=== PATIENT | female | born 1960 | race Caucasian/White ===

== ENCOUNTER → 2016-05-16 | Outpatient (CLI) | payer OTHER ==
[~2016-05-16] MED LIST: ASPEC325 PO; ASPI81TA28 PO; CARI350T28 PO; CITA20TA9 PO; FEXO1TAB58 PO; FLUT0.15 INH; FLUT50SP14 NAE; GADAVIST IV PRN; NARA1TAB14 PO; NUTR1000 PO; PRAV20TA PO; RIZA10TA18 PO; TOPI100T20 PO; TOPI50TA16 PO; TRAM-10 PO
--- NOTE | 2016-05-16 14:00 | DIAGNOSTIC IMAGING REPORT ---
MRI OF THE BRAIN WITHOUT AND WITH IV CONTRAST CLINICAL HISTORY: Headache. Suspected migraine. COMPARISON STUDY: Head CT dated 10/26/2011 TECHNIQUE: MRI of the brain was performed from the vertex to the skull base utilizing various T1 and T2 weighted sequences. Following the IV administration of 6 mL of Gadavist contrast, additional enhanced images were obtained. FINDINGS: Sagittal T1, axial diffusion, proton density and T2 weighted axial, coronal FLAIR, and pre and post axial T1-weighted images were acquired. These were supplemented with post gadolinium coronal T1 weighted images. No intra or extra-axial mass lesions are visualized. Axial diffusion-weighted images reveal no evidence of acute or subacute infarction. There is no evidence of ventricular dilatation. Proton density T2-weighted and FLAIR images reveal no significant intraparenchymal signal abnormalities. There are no abnormal flow voids. There is no evidence of pathologic enhancement. IMPRESSION: Normal MRI of the brain for age Electronically signed by: Paul Patten M.D. 05/16/2016 1:59 PM Dictated Date/Time: 05/16/2016 1:55 PM
== END | disposition home or self-care (01) ==
LOC: C.MRI 13:03
PROVIDERS: ATTEND Psychiatry & Neurology Neurology
DX: G43.909 Migraine, unspecified, not intractable, without status migrainosus (principal)

== ENCOUNTER → 2016-08-23 | Outpatient (CLI) | payer OTHER ==
--- NOTE | 2016-08-24 14:24 | MAMMOGRAPHY REPORT ---
BREAST MRI OF BOTH BREASTS : 08/23/2016 CLINICAL HISTORY: 55 year-old woman with a personal history of left breast cancer diagnosed in 2005, status post breast conservation therapy, presents with new left nipple retraction over the past 6-12 months. Patient reports no nipple discharge, palpable mass or focal pain. COMPARISON: Comparison is made to exams dated: 10/02/2011 ultrasound, 10/02/2011 mammogram - [facility], 12/12/2010 mammogram, 12/23/2009 mammogram - [facility], 01/27/2009 spec imen, and 01/24/2009 localization - [facility]. TECHNIQUE: Using a 1.5 Mary magnet and dedicated breast coil, multisequence axial images were obtain ed through the breasts. After uneventful IV administration of 6.5 mL of Gadavist, dynamic multiphase contrast-enhanced axial images, and sagittal postcontrast were obtained. Temporal subtraction axial images and 3-D MIP images are provided. Everything was then reviewed on a 3-D workstation, [employer]. FINDINGS: There is mild asymmetry in the size of the breasts, right greater than left, likely seconda ry to previous treatment of the left breast. There is mild background enhancement in the breasts. T here is expected architectural distortion and central fat necrosis in the 12:00 to 1:00 middle one th ird of the left breast, at the site of prior lumpectomy. There is mild anterior left breast thickeni ng which could be related to prior treatment. There is retraction of the left nipple compared to the right. However, there is no suspicious mass or suspicious enhancement near the area of prior surger y or elsewhere within the anterior left breast to suggest an underlying cause of the new nipple retra ction. There is no enhancement of the skin or tissue surrounding the retracted left nipple. There i s minimal duct ectasia of the left breast, and to a greater degree duct ectasia within the right j[address]. Overall, no suspicious enhancing mass, suspicious mass enhancement or suspicious kinetics are id entified bilaterally. No suspicious right or left axillary lymphadenopathy. Incidental note is made of trace dependent fluid in the visualized aspect of the lungs. IMPRESSION: ACR BI-RADS CATEGORY 2: BENIGN 1. Expected postsurgical and posttreatment changes within the left breast. No new suspicious enhanc ing mass enhancement of the skin or other suspicious abnormality to explain the new left nipple retra ction. It is unclear if this may be related to prior treatment. Clinical follow-up is recommended, as biopsy of a clinically suspicious abnormality should not be precluded by negative imaging. 2. Overall, no MRI evidence of malignancy in the breasts. Continuation of annual screening schedule is recommended. The patient will receive written notification of the results. Meli Jansen M.D. ay/:08/23/2016 17:48:06 Home Demonstration Agent: call worker, [facility] letter sent: Normal 1/2 BI-RADS Code: ACR BI-RADS Category 2: Benign
== END | disposition home or self-care (01) ==
LOC: C.MRI 12:23
PROVIDERS: ATTEND Surgery
DX: N64.53 Retraction of nipple (principal); Z85.3 Personal history of malignant neoplasm of breast

== ENCOUNTER 2016-09-29 16:03 | Emergency (ER) | payer OTHER ==
[~2016-09-29] VITALS: Ht 162.6 cm; Wt 65.3 kg
[~2016-09-29 16:03] MED LIST changes: -ASPI81TA28 PO; -FLUT0.15 INH; -GADAVIST IV PRN; -NARA1TAB14 PO
[2016-09-29 16:10] VITALS: TEMP 36.4; Ht 162.6 cm; Wt 65.3 kg
[2016-09-29] MEDS ORDERED: MoRPHine SULFATE 10 MG/ML CARP/VIAL IV STA (16:30)
[2016-09-29] MEDS ORDERED: PROMETHAZINE HCL INJ 12.5 MG in SODIUM CHLORIDE 0.9% 50ML 50 ML IV STA (16:30)
[2016-09-29] MEDS ORDERED: KETOROLAC TROMETHAMINE 30 MG/ML VIAL IV STA (16:30)
[2016-09-29] MEDS ORDERED: DEXAMETHASONE SOD INJ 10 MG/ML VIAL IV ONE (16:30)
[2016-09-29] MEDS ORDERED: SODIUM CHLORIDE 0.9% 1000ML 500 ML IV STA (16:30)
[2016-09-29] MEDS ORDERED: FLUT0.15 INH (16:51)
[2016-09-29] MEDS ORDERED: ASPI81TA28 PO (16:51)
[2016-09-29] MEDS ORDERED: NARA1TAB14 PO (16:51)
[2016-09-29 16:54] VITALS: O2SAT 94
--- NOTE | 2016-09-29 17:35 | EMERGENCY ROOM VISIT NOTE ---
ED Visit Note First contact with patient: 16:16 CHIEF COMPLAINT: Migraine headache since this morning HISTORY OF PRESENT ILLNESS: Patient is a 55-year-old white female who presents to the emergency department for evaluation of a migraine that started this morning. Patient states that she didn't feel quite right yesterday evening but did not have a headache. She noted she was fatigued. She woke up at 0 8:30 this morning with a headache and took Excedrin and went back to bed. She woke up again 30 minutes later and took her typical cocktail including Soma, naratriptan and tramadol. She repeated this again at 1400, without relief. She reports her typical throbbing right occipital headache radiating to the right periorbital area. She has associated nausea, photo and phonophobia without vomiting. She follows with neurology, had an MRI in April of this year which was negative and has an appointment at the end of the month. She denies any difficulty with balance, speech or coordination. She denies any recent cold or upper respiratory symptoms, fever, chills, neck pain or stiffness. She denies weakness or numbness of the extremities. No trauma to the head and no neck pain. Patient reports that this is very typical of her usual migraine phenomenon. She rates her headache any/10. REVIEW OF SYSTEMS: Review of systems as per HPI. All other systems reviewed were negative. 10 systems reviewed. PMH: Electronic medical records are reviewed and summarized as above/below. See Problem List. SOCIAL HISTORY: Patient lives at home with her significant other. Employed. Nonsmoker.. PHYSICAL EXAM: Vital Signs: Reviewed Nurse's notes. General Appearance: Pleasant, well appearing, well-groomed 55-year-old white female who was awake and alert and laying in a darkened room in no acute distress. Vital signs are stable. Eyes: Pupils equal round reactive to light extraocular muscles are intact, no proptosis, mild photophobia ENT: Oropharynx is clear, mucous membranes are moist, tympanic membranes are clear bilaterally, no sinus or dental tenderness, tongue and uvula are midline. Neck: No carotid bruits auscultated. Supple, no cervical lymphadenopathy, no meningismus Heart: Regular rate and rhythm, S1 and S2 Lungs: Clear to auscultation bilaterally, no wheezes Rales or rhonchi, no increased work of breathing Abdomen: Soft nontender nondistended. Normal active bowel sounds. No rebound. No guarding. Back: No midline tenderness to palpation. : No CVA tenderness to palpation. Skin: Warm, no diaphoresis, no rashes. Extremities: No cyanosis, clubbing, or edema Neurologic: Patient is awake alert, and oriented x 3. Cranial nerves 2-12 are grossly intact. Motor 5 out of 5 strength bilateral upper extremities and lower extremities. No gross sensory deficits. Reflexes are 2+ throughout. EMERGENCY DEPARTMENT COURSE: The patient was seen and evaluated as above. Old records are reviewed. She is seen infrequently for her migraines, her last visit was over 6 months ago. Treatment options were discussed with her. IV lock was initiated. She was given a 500 mL bolus of normal saline solution and medicated with Toradol 30 mg, Decadron 10 mg, morphine 6 mg and Phenergan 12.5 mg IV which are medications that she typically receives an work well for her. She was reassessed after roughly 45 minutes, and was feeling significantly improved and wanted to be discharged home. She rated her headache a 3/10 at this time. Her is driving. Medication reconciliation: I attest that I have personally reviewed the patient' s current medication list. Blood pressure screening: Patient was found to have a slightly elevated blood pressure due to circumstances. I do not believe that the patient requires hypertension monitoring. Differential includes: acute intracranial bleed, meningitis, encephalitis, mass or mass effect, sinusitis, infection, migraine, tumor, headache, temporal arteritis and carbon monoxide exposure. Problem List Medical Problems: (1) Antiphospholipid syndrome Permanent Comment: Symptoms in past, borderline diagnosis. 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 (2) CA IN SITU BREAST Status: Resolved (3) Headache Status: Resolved (4) HX-VENOUS THROMBOSIS&EMBOLISM Status: Resolved (5) HYDROMYELIA Status: Chronic (6) Migraine Status: Resolved (7) Migraine headache Status: Resolved (8) Migraine headache Status: Resolved (9) MIGRAINE W/O AURA W/O INTRACT MGRN W/O STATUS MIGRAINOSUS Status: Chronic (10) PRIMARY HYPERCOAGULABLE STATE Status: Chronic (11) Subclavian vein thrombosis Status: Chronic (12) Thoracic outlet Status: Chronic (13) Thoracic outlet syndrome Status: Resolved Surgical Problems: (1) H/O: hysterectomy Status: Resolved (2) Hx of appendectomy Status: Resolved (3) Hx of tonsillectomy Status: Resolved Current/Historical Medications Scheduled Aspirin (Aspirin Ec), 4 TABS PO DAILY Citalopram Hydrobromide (Celexa), 40 MG PO DAILY Naratriptan Hcl (Amerge), 2.5 MG PO PRN UD Nutritional Supplements ([place] Oil), 500 MG PO DAILY Pravastatin (Pravachol ), 20 MG PO QPM Topiramate (Topamax), 50 MG PO QAM Topiramate (Topamax), 100 MG PO QPM Scheduled PRN Carisoprodol (Soma), 350 MG PO TID PRN for as needed Fexofenadine-Pseudoephedrine (Monica-D 24 Hour Allergy), 1 TAB PO DAILY PRN for ALLERGIC REACTION Fluticasone Propionate (Nasal) (Flonase Allergy Relief), 2 SPRAYS INH DAILY PRN for Nasal Congestion Tramadol (Ultram), 50 MG PO BID PRN for Pain Allergies Coded Allergies: Sulfa Drugs (Unverified Allergy, Mild, 03/18/16) Vital Signs Date Time Temp Pulse Resp B/P (MAP) Pulse Ox O2 Delivery O2 Flow Rate FiO2 09/29/16 17:44 69 18 156/93 97 09/29/16 16:54 94 Room Air 09/29/16 16:10 36.4 79 20 132/92 96 Room Air Medications Administered Medications (Trade) Dose Ordered Sig/Toribio Route Start Time Stop Time Status Last Admin Dose Admin Sodium Chloride 500 ml @ 999 mls/hr Q31M STAT IV 09/29/16 16:30 09/29/16 17:00 DC 09/29/16 16:48 999 MLS/HR Ketorolac Tromethamine (Toradol Inj) 30 mg NOW STAT IV 09/29/16 16:30 09/29/16 16:32 DC 09/29/16 16:49 30 MG Promethazine HCl 12.5 mg/Sodium Chloride 50.5 ml @ 204 mls/hr NOW STAT IV 09/29/16 16:30 09/29/16 16:44 DC 09/29/16 16:48 204 MLS/HR Dexamethasone Sodium Phosphate (Decadron Inj) 10 mg NOW ONCE IV 09/29/16 16:30 09/29/16 16:32 DC 09/29/16 16:47 10 MG Morphine Sulfate (MoRPHine SULFATE INJ) 6 mg NOW STAT IV 09/29/16 16:30 09/29/16 16:32 DC 09/29/16 16:47 6 MG Departure Information Impression Primary Impression: Headache Referrals Albaro Gabriel D.OCornelia (PCP) Patient Instructions My [facility] Additional Instructions DO NOT drive, drink alcohol, operate machinery, or perform dangerous activities today. You were given medications in the ER that can affect your ability to safely function or operate a vehicle. Rest today in a quiet, peaceful, dark environment and get a full 8-10 hrs of sleep tonight. Avoid loud noises, smoke/smoking, alcohol, bright lights, stress, or physical exertion today to minimize the chance the headache may return. Continue current medications. Return to the ER for passing out, worsening headache, vision problems, neck stiffness/pain, fevers, vomiting, worsening of your condition, or as needed. Follow up with your neurologist as you have scheduled.
[2016-09-29 17:44] VITALS: BP 156/93; PULSE 69; O2SAT 97
== END 2016-09-29 17:45 | disposition home or self-care (01) ==
LOC: C.EDB 16:03 → C.EDC 17:45
DX: R51 Headache (principal); Z79.82 Long term (current) use of aspirin

== ENCOUNTER 2017-01-15 11:15 | Emergency (ER) | payer OTHER ==
[~2017-01-15] VITALS: Ht 162.6 cm; Wt 68.7 kg
[~2017-01-15 11:15] MED LIST changes: -ASPEC325 PO; -CARI350T28 PO; -FLUT50SP14 NAE; -NUTR1000 PO; -PRAV20TA PO; -RIZA10TA18 PO; -TOPI100T20 PO; -TOPI50TA16 PO; -TRAM-10 PO
[2017-01-15 11:25] VITALS: Ht 162.6 cm; Wt 68.7 kg
[2017-01-15] MEDS ORDERED: KETOROLAC TROMETHAMINE 30 MG/ML VIAL IV STA (11:55)
[2017-01-15] MEDS ORDERED: SODIUM CHLORIDE 0.9% 500ML 500 ML IV STA ×2 (11:55→13:32)
[2017-01-15] MEDS ORDERED: PROMETHAZINE HCL INJ 12.5 MG in SODIUM CHLORIDE 0.9% 50ML 50 ML IV STA (11:55)
[2017-01-15] MEDS ORDERED: MAGNESIUM SULFATE 1GM / D5W 1 GM BAG IV STA (11:55)
[2017-01-15] MEDS ORDERED: DEXAMETHASONE SOD INJ 10 MG/ML VIAL IV ONE (12:00)
--- NOTE | 2017-01-15 12:55 | EMERGENCY ROOM VISIT NOTE ---
ED Visit Note First contact with patient: 11:41 CHIEF COMPLAINT: Migraine headache HISTORY OF PRESENT ILLNESS: This 56-year-old female patient presented to the emergency department, ambulatory, with a gradual onset of a severe generalized headache that started at approximately 8:30 this morning. The patient states the migraine is similar to their typical migraines. There has been associated photophobia, phonophobia, and mild nausea, but no vomiting. She states the migraine is also associated with neck and back stiffness, which is typical of her migraines. The patient denies fever or chills recently, and there is no weakness or numbness of the extremities. There is no difficulty with speech or vision. No trauma to the head and no neck pain. The pain is severe, constant, and it is slowly increasing in severity. The patient rates the pain as throbbing and 10/10. The patient has taken tramadol and Excedrin, then 2 hours later took Maxalt without relief of her symptoms. This is not the worst headache of the life and is similar to previous migraines. Previous imaging studies of the brain have been normal. REVIEW OF SYSTEMS: A 10 system review of systems was performed with positives and pertinent negatives listed in the history of present illness. All other systems were reviewed and are negative. ALLERGIES: Sulfa, "something else, but I cannot remember what it is or what it is for" MEDICATIONS: Please see list. PMH: CMT, subclavian clot, thoracic outlet syndrome SOCIAL HISTORY: The patient lives locally with family. She denies drug, alcohol , tobacco use. PHYSICAL EXAM: Vital Signs: Reviewed Nurse's notes, vital signs stable. GENERAL : This is a 56 year old white female, who appears in pain, but non toxic in appearance and in no acute distress. MENTAL STATUS: Alert, oriented, and coherent. HEENT: Normocephalic. PERRLA. EOMI. Nares patent without nuchal rigidity. Tympanic membranes pearly moore without erythema or effusion bilaterally. Mucous membranes moist. NECK: Supple, no nuchal rigidity, nontender, no lymphadenopathy. HEART: Regular rhythm and normal rate without murmurs, ectopy, gallops, or rubs. LUNGS: Clear to auscultation bilaterally without wheezes, rales or rhonchi. No dullness to percussion. No accessory muscle use. No retractions. SKIN: Normal. NEUROLOGICAL: Pupils are round, equal and react to light. The optic fundi are normal and the discs are flat. The patient moves all extremities well and the gait is normal. EMERGENCY DEPARTMENT COURSE: I examined the patient. The patient has been seen infrequently here in the emergency department for her migraines, with her last visit being in September. Previously she had received normal saline, Toradol, Decadron, Phenergan, and morphine. I discussed with the patient that I would like to give her the same medications, minus the morphine, but with magnesium this time. I discussed with her that we are trying to move away from prescribing and giving narcotics for chronic migraines. The patient is in agreement with this plan and willing to try a change in her normal regimen. The patient was given 500 mL bolus normal saline, 30 mg Toradol, 10 mg Decadron , 12.5 mg Phenergan, and 1 g magnesium through the IV. She states she was feeling slightly improved, however was not feeling significantly better. She was given another 50 mL bolus normal saline, and at this time feels much improved and is ready to go home. Discharge instructions were reviewed and the patient was discharged home in good condition. The differential diagnosis includes acute intracranial bleed, meningitis, encephalitis, mass or mass effect, sinusitis, infection, tumor, headache, temporal arteritis and carbon monoxide exposure, and migraine. The patient was discharged home in stable condition with family member driving. I attest that I have personally reviewed the patient's current medication list. Patient was found to have slightly elevated blood pressure in the ED, however, I do feel that this was situational and does not require monitoring. 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 (2) CA IN SITU BREAST Status: Resolved (3) Headache Status: Resolved (4) HX-VENOUS THROMBOSIS&EMBOLISM Status: Resolved (5) HYDROMYELIA Status: Chronic (6) Migraine Status: Resolved (7) Migraine headache Status: Resolved (8) Migraine headache Status: Resolved (9) MIGRAINE W/O AURA W/O INTRACT MGRN W/O STATUS MIGRAINOSUS Status: Chronic (10) PRIMARY HYPERCOAGULABLE STATE Status: Chronic (11) Subclavian vein thrombosis Status: Chronic (12) Thoracic outlet Status: Chronic (13) Thoracic outlet syndrome Status: Resolved Surgical Problems: (1) H/O: hysterectomy Status: Resolved (2) Hx of appendectomy Status: Resolved (3) Hx of tonsillectomy Status: Resolved Current/Historical Medications Scheduled Aspirin (Aspirin Ec), 325 MG PO DAILY Citalopram Hydrobromide (Celexa), 40 MG PO DAILY Naratriptan Hcl (Amerge), 2.5 MG PO PRN UD Nutritional Supplements ([place] Oil), 500 MG PO DAILY Pravastatin (Pravachol ), 20 MG PO QPM Topiramate (Topamax), 50 MG PO QAM Topiramate (Topamax), 100 MG PO QPM Scheduled PRN Carisoprodol (Soma), 350 MG PO TID PRN for as needed Fexofenadine-Pseudoephedrine (Monica-D 24 Hour Allergy), 1 TAB PO DAILY PRN for ALLERGIC REACTION Fluticasone Propionate (Nasal) (Flonase Allergy Relief), 2 SPRAYS INH DAILY PRN for Nasal Congestion Tramadol (Ultram), 50 MG PO BID PRN for Pain Allergies Coded Allergies: Sulfa Drugs (Unverified Allergy, Mild, 01/15/17) Vital Signs Date Time Temp Pulse Resp B/P (MAP) Pulse Ox O2 Delivery O2 Flow Rate FiO2 01/15/17 13:32 60 15 143/81 98 Room Air 01/15/17 11:25 36.7 70 20 148/85 96 Room Air Medications Administered Medications (Trade) Dose Ordered Sig/Toribio Route Start Time Stop Time Status Last Admin Dose Admin Sodium Chloride 500 ml @ 999 mls/hr Q31M STAT IV 01/15/17 11:55 01/15/17 12:25 DC 01/15/17 12:44 999 MLS/HR Ketorolac Tromethamine (Toradol Inj) 30 mg NOW STAT IV 01/15/17 11:55 01/15/17 11:59 DC 01/15/17 12:44 30 MG Dexamethasone Sodium Phosphate (Decadron Inj) 10 mg NOW ONCE IV 01/15/17 12:00 01/15/17 12:01 DC 01/15/17 12:43 10 MG Promethazine HCl 12.5 mg/Sodium Chloride 50.5 ml @ 204 mls/hr NOW STAT IV 01/15/17 11:55 01/15/17 12:09 DC 01/15/17 12:43 204 MLS/HR Magnesium Sulfate (Magnesium Sulfate) 1 gm NOW STAT IV 01/15/17 11:55 01/15/17 11:59 DC 01/15/17 12:44 1 GM Sodium Chloride 500 ml @ 999 mls/hr Q31M STAT IV 01/15/17 13:32 01/15/17 14:02 DC 01/15/17 13:43 999 MLS/HR Departure Information Impression Primary Impression: Migraine Dispostion Home / Self-Care Condition GOOD Referrals Albaro Gabriel, D.O. (PCP) Patient Instructions ED Headache Migraine, My [facility] Additional Instructions DO NOT drive, drink alcohol, operate machinery, or perform dangerous activities today. You were given medications in the ER that can affect your ability to safely function or operate a vehicle. Rest today in a quiet, peaceful, dark environment and get a full 8-10 hrs of sleep tonight. Avoid loud noises, smoke/smoking, alcohol, bright lights, stress, or physical exertion today to minimize the chance the headache may return. Continue current medications as prescribed. Consider Magnesium 400mg daily for prevention. As discussed, when you experience a migraine, it is important to take your migraine medication as soon as possible. If you wait longer, sometimes the medication is less effective. Ibuprofen(Motrin, Advil) may be used for fever or pain. Use 600mg every six hours as needed. Take with food. Avoid using more than 2400mg in a 24 hour period. Do not use 2400mg per day for more than three consecutive days without physician direction. Prolonged inappropriate use can lead to stomach upset or ulcers. (AND/OR) Acetaminophen(Tylenol) may be used for fever or pain. Use 1000mg every six hours as needed. Avoid using more than 3000mg in a 24 hour period. Return to the ER for passing out, worsening headache, vision problems, neck stiffness/pain, fevers, vomiting, worsening of your condition, or as needed. Follow up with your primary physician in 2-3 days for a recheck of your current condition. Problem Qualifiers Primary Impression: Migraine Migraine type: without aura Status migrainosus presence: with status migrainosus Intractability: intractable Qualified Codes: G43.011 - Migraine without aura, intractable, with status migrainosus
[2017-01-15] MEDS ORDERED: NUTR1000 PO (13:40)
[2017-01-15] MEDS ORDERED: CARI350T28 PO (13:40)
[2017-01-15] MEDS ORDERED: TRAM-10 PO (13:40)
[2017-01-15] MEDS ORDERED: TOPI50TA16 PO (13:59)
[2017-01-15] MEDS ORDERED: TOPI100T20 PO (13:59)
[2017-01-15 14:57] VITALS: BP 158/90; PULSE 63; TEMP 36.7; O2SAT 95
[2017-01-15] MEDS ORDERED: PRAV20TA PO (15:59)
[2017-01-15] MEDS ORDERED: NARA1TAB14 PO (16:51)
[2017-01-15] MEDS ORDERED: FLUT0.15 INH (16:51)
[2017-01-15] MEDS ORDERED: ASPI81TA28 PO (16:51)
== END 2017-01-15 14:58 | disposition home or self-care (01) ==
LOC: C.EDB 11:17 → C.EDA 14:58
DX: G43.011 Migraine without aura, intractable, with status migrainosus (principal); G54.0 Brachial plexus disorders; Z79.82 Long term (current) use of aspirin; Z79.84 Long term (current) use of oral hypoglycemic drugs; Z79.899 Other long term (current) drug therapy; Z85.3 Personal history of malignant neoplasm of breast; Z86.718 Personal history of other venous thrombosis and embolism

== ENCOUNTER 2017-04-11 12:39 | Observation (INO) | payer OTHER ==
[~2017-04-11] VITALS: Ht 162.6 cm; Wt 64.9 kg
[~2017-04-11 12:39] MED LIST changes: +ASPI81TA28 PO; +CARI350T28 PO; +FLUT0.15 NAE; +NARA1TAB14 PO; +NUTR1000 PO; +PRAV20TA PO; +TOPI100T20 PO; +TOPI50TA16 PO; +TRAM-10 PO
[2017-04-11] MEDS ORDERED: ACETAMINOPHEN 500 MG TAB PO STA (14:50)
--- NOTE | 2017-04-11 14:51 | EMERGENCY ROOM VISIT NOTE ---
History Report prepared by Jessica: Laz Chowdhury Under the Supervision of: Dr. Geraldo Mckeon M.D. First contact with patient: 14:39 Chief Complaint: CHEST PAIN Stated Complaint: CHEST PAIN Nursing Triage Summary: Tightness in chest since Saturday, comes and goes. feels "winded", denies SOB. some lightheadedness at times. denies cardiac hx History of Present Illness The patient is a 56 year old white female with a past medical history of subclavian vein thrombosis and antiphospholipid syndrome who presents to the ED with a cc of persistent left-sided chest tightness beginning 4 days ago. Positive low grade fever, feeling "winded", leg swelling, sweaty. Negative cough , abdominal pain, nausea, leg pain. The patient states that she called her doctor prior to arrival, and was recommended to come here. She says that she takes Aspirin but no other blood thinners. The patient denies any recent long travels. She is an ex-smoker, and last smoked in 1995. Source of History: patient Onset: 4 days ago Position: chest (left) Quality: other (tightness) Timing: other (persistent) Associated Symptoms: + fevers, + diaphoresis, + SOB (winded), No cough, No nausea, No abdominal pain Note: Denies leg pain. Review of Systems See HPI for pertinent positives and negatives. A total of ten systems were reviewed and were otherwise negative. Past Medical & Surgical Medical Problems: (1) Antiphospholipid syndrome (2) CA IN SITU BREAST (3) Headache (4) HX-VENOUS THROMBOSIS&EMBOLISM (5) HYDROMYELIA (6) Migraine (7) Migraine headache (8) MIGRAINE W/O AURA W/O INTRACT MGRN W/O STATUS MIGRAINOSUS (9) PRIMARY HYPERCOAGULABLE STATE (10) Protein S deficiency (11) Subclavian vein thrombosis (12) Thoracic outlet (13) Thoracic outlet syndrome Surgical Problems: (1) H/O: hysterectomy (2) Hx of appendectomy (3) Hx of tonsillectomy Family History Cancer Diabetes mellitus FH: gallbladder disease Heart disease Hypertension Kidney disease Kidney stones Lung disease Social History Smoking Status: Former Smoker Alcohol Use: occasionally Marital Status: Housing Status: lives with family Occupation Status: employed Current/Historical Medications Scheduled Aspirin (Aspirin), 1 TAB PO DAILY Citalopram Hydrobromide (Celexa), 40 MG PO DAILY Naratriptan Hcl (Amerge), 2.5 MG PO PRN UD Nutritional Supplements ([place]illan Oil), 500 MG PO DAILY Pravastatin (Pravachol ), 20 MG PO QPM Topiramate (Topamax), 100 MG PO BID Scheduled PRN Carisoprodol (Soma), 1 TAB PO BID PRN for Migraine Fexofenadine-Pseudoephedrine (Monica-D 24 Hour Allergy), 1 TAB PO DAILY PRN for ALLERGIC REACTION Fluticasone Propionate (Nasal) (Flonase Allergy Relief), 2 SPRAYS THOMAS DAILY PRN for Nasal Congestion Tramadol (Ultram), 50 MG PO Q6H PRN for Pain Allergies Coded Allergies: Sulfa Drugs (Unverified Allergy, Mild, 04/11/17) Physical Exam Vital Signs Date Time Temp Pulse Resp B/P (MAP) Pulse Ox O2 Delivery O2 Flow Rate FiO2 04/11/17 17:30 123/88 04/11/17 17:24 79 23 96 04/11/17 17:23 96 Room Air 04/11/17 17:09 79 19 97 04/11/17 17:00 107/74 04/11/17 16:54 94 19 91 04/11/17 16:49 80 14 96 04/11/17 16:48 137/87 04/11/17 15:55 76 04/11/17 15:49 82 18 96 04/11/17 15:44 81 16 95 04/11/17 14:55 85 18 158/111 98 Room Air 04/11/17 14:47 99 Room Air 04/11/17 14:46 158/111 04/11/17 12:46 97 Room Air 04/11/17 12:44 36.7 102 18 102/71 98 Room Air Physical Exam GENERAL: Awake, alert, well-appearing, NAD HENT: Normocephalic, atraumatic. EYES: Normal conjunctiva. Sclera non-icteric. NECK: Supple. No nuchal rigidity. FROM. RESPIRATORY: CTAB, no rhonchi, wheezing, crackles CARDIAC: RRR, no MRG ABDOMEN: Soft, NTND, BS+ MSK: No chest wall TTP, no LE edema NEURO: GCS 15, CN 2-12 intact, moves all 4s on command SKIN: No rash or jaundice noted. Prior surgical scar over right proximal anterior neck. Medical Decision & Procedures ER Provider Diagnostic Interpretation: Radiology results as stated below per my review and radiologist interpretation: CT ANGIOGRAM OF THE CHEST CLINICAL HISTORY: Atypical chest pain. COMPARISON STUDY: Chest x-ray dated 04/11/2017. Chest CT dated 04/04/2007. TECHNIQUE: Following the IV administration of 87 cc of Optiray 320, CT angiogram of the chest was performed from the upper abdomen to the thoracic inlet utilizing the pulmonary embolus protocol. Images are reviewed in the axial, sagittal, and coronal planes. 3-D MIPS images are created and assessed. IV contrast was administered without complication. A dose lowering technique was utilized adhering to the principles of ALARA. CT DOSE: 291.56 mGy.cm FINDINGS: Thyroid: Imaged portions of the thyroid gland are normal in size and attenuation. A 10 mm low-attenuation nodule is seen in the right lobe. Thoracic aorta: The thoracic aorta is normal in caliber and demonstrates standard 3-vessel arch anatomy. No dissection is seen. Pulmonary vasculature: The pulmonary trunk is normal in caliber. There are no filling defects identified in main, lobar, or segmental pulmonary branches to suggest pulmonary embolus. Heart: The heart is normal in size and configuration, and without pericardial effusion. Lungs and pleural spaces: There are trace pleural effusions. Dependent atelectasis is observed. No airspace consolidation is seen typical for pneumonia. The trachea and central airways are clear. Mediastinum: There is no mediastinal lymphadenopathy. Lisa: Clear. Axillae: There is no axillary lymphadenopathy. Upper abdomen: Partially visualized upper abdominal viscera is within normal limits. Skeletal structures: No lytic or blastic bony lesions are seen. IMPRESSION: 1. There is no evidence of pulmonary embolus in the main, lobar, or segmental pulmonary arteries. 2. There are trace pleural effusions. The lungs are otherwise clear. 3. There is a 1.0 cm low-attenuation nodule in the right thyroid lobe. Consider follow-up with a nonemergent thyroid ultrasound for further assessment. Electronically signed by: Landon Raza M.D. 04/11/2017 4:10 PM Dictated Date/Time: 04/11/2017 4:02 PM CHEST ONE VIEW PORTABLE CLINICAL HISTORY: CHEST PAIN dyspnea COMPARISON STUDY: 08/12/2012 FINDINGS: Chronic postoperative change right pulmonary apex. Lungs are clear. Diaphragms are smooth. No evidence for cardiac enlargement. IMPRESSION: Chronic change. No acute process. The above report was generated using voice recognition software. It may contain grammatical, syntax or spelling errors. Electronically signed by: Endy Plascencia M.D. 04/11/2017 3:39 PM Dictated Date/Time: 04/11/2017 3:38 PM Laboratory Results 04/11/17 14:55 Red Blood Count 4.98, Mean Corpuscular Volume 90.6, Mean Corpuscular Hemoglobin 30.7, Mean Corpuscular Hemoglobin Concent 33.9, Mean Platelet Volume 10.4, Neutrophils (%) (Auto) 43.9, Lymphocytes (%) (Auto) 47.5, Monocytes (%) (Auto) 7.1, Eosinophils (%) (Auto) 1.0, Basophils (%) (Auto) 0.4, Neutrophils # (Auto) 2.98, Lymphocytes # (Auto) 3.23, Monocytes # (Auto) 0.48, Eosinophils # (Auto) 0.07, Basophils # (Auto) 0.03 04/11/17 14:55 Test 04/11/17 14:55 04/11/17 15:02 White Blood Count 6.80 K/uL (4.8-10.8) Red Blood Count 4.98 M/uL (4.2-5.4) Hemoglobin 15.3 g/dL (12.0-16.0) Hematocrit 45.1 % (37-47) Mean Corpuscular Volume 90.6 fL (80-100) Mean Corpuscular Hemoglobin 30.7 pg (25-34) Mean Corpuscular Hemoglobin Concent 33.9 g/dl (32-36) Platelet Count 198 K/uL (130-400) Mean Platelet Volume 10.4 fL (7.4-10.4) Neutrophils (%) (Auto) 43.9 % Lymphocytes (%) (Auto) 47.5 % Monocytes (%) (Auto) 7.1 % Eosinophils (%) (Auto) 1.0 % Basophils (%) (Auto) 0.4 % Neutrophils # (Auto) 2.98 K/uL (1.4-6.5) Lymphocytes # (Auto) 3.23 K/uL (1.2-3.4) Monocytes # (Auto) 0.48 K/uL (0.11-0.59) Eosinophils # (Auto) 0.07 K/uL (0-0.5) Basophils # (Auto) 0.03 K/uL (0-0.2) RDW Standard Deviation 39.9 fL (36.4-46.3) RDW Coefficient of Variation 12.0 % (11.5-14.5) Immature Granulocyte % (Auto) 0.1 % Immature Granulocyte # (Auto) 0.01 K/uL (0.00-0.02) Prothrombin Time 10.6 SECONDS (9.0-12.0) Prothromb Time International Ratio 1.0 (0.9-1.1) Activated Partial Thromboplast Time 25.7 SECONDS (21.0-31.0) Partial Thromboplastin Ratio 1.0 Est Creatinine Clear Calc Drug Dose 49.7 ml/min Estimated GFR () 60.1 Estimated GFR (Non- 51.9 BUN/Creatinine Ratio 17.4 (10-20) Calcium Level 9.9 mg/dl (8.5-10.1) Total Bilirubin 0.4 mg/dl (0.2-1) Direct Bilirubin < 0.1 mg/dl (0-0.2) Aspartate Amino Transf (AST/SGOT) 18 U/L (15-37) Alanine Aminotransferase (ALT/SGPT) 39 U/L (12-78) Alkaline Phosphatase 61 U/L (45-117) Troponin I 0.033 ng/ml (0-0.045) Pro-B-Type Natriuretic Peptide 64 pg/ml (0-900) Total Protein 7.7 gm/dl (6.4-8.2) Albumin 4.2 gm/dl (3.4-5.0) Lipase 203 U/L (73-393) Hepatitis C Antibody Screen NEG (NEG) Bedside Hemoglobin 15.3 g/dl (12.0-16.0) Bedside Hematocrit 45 % (37-47) Bedside Sodium 142 mEq/L (135-144) Bedside Potassium 4.3 mEq/L (3.3-5.0) Bedside Chloride 105 mEq/L (101-112) Bedside Total CO2 24 mEq/l (24-31) Anion Gap 18.0 mmol/L (16-25) Bedside Blood Urea Nitrogen 22 mg/dl (7-18) Bedside Creatinine 1.0 mg/dl (0.6-1.3) Bedside Glucose (other) 99 mg/dl (70-99) Bedside Ionized Calcium (Elly) 1.31 mmol/l (1.12-1.32) Bedside Troponin I < 0.030 ng/ml (0-0.045) Laboratory results reviewed by me Medications Administered Medications (Trade) Dose Ordered Sig/Toribio Route Start Time Stop Time Status Last Admin Dose Admin Acetaminophen (Tylenol Tab) 1,000 mg NOW STAT PO 04/11/17 14:50 04/11/17 14:51 DC 04/11/17 14:59 1,000 MG Aspirin (Aspirin Chew) 324 mg NOW STAT PO 04/11/17 16:30 04/11/17 16:31 DC 04/11/17 16:51 324 MG Nitroglycerin (Nitrostat Tab) 0.4 mg NOW STAT SL 04/11/17 16:30 04/11/17 16:31 DC 04/11/17 16:51 0.4 MG ECG Indication: chest pain Rate (beats per minute): 95 Rhythm: normal sinus Findings: other (normal intervals, normal axis, no STS changes or TWI) Change: Patient's electrocardiogram interpreted by me. ED Course 1444: The patient was evaluated in room C7. A complete history and physical exam was performed. 1627: Upon reexamination, the patient was resting comfortably. I discussed the test results and treatment plan with her. She expressed understanding and agreement. The patient will be evaluated for further management. 1635: Discussed the patient's case with Mary Bojorquez. The patient will be evaluated for further treatment and disposition. Medical Decision The patient is a 56 year old white female with a past medical history of subclavian vein thrombosis and antiphospholipid syndrome who presents to the ED with a cc of persistent left-sided chest tightness beginning 4 days ago. Positive low grade fever, feeling "winded", leg swelling, sweaty. Negative cough , abdominal pain, nausea, leg pain. Differential diagnosis: Etiologies such as cardiac ischemia, aortic dissection, pulmonary embolism, pneumonia, pneumothorax, musculoskeletal, infections, pericarditis, myocarditis , esophageal rupture, gastrointestinal, as well as others were entertained. Patient was seen and evaluated the bedside. Patient is a prior history of subclavian vein thrombosis and phospholipid syndrome presents with left-sided chest pressure. Patient states that mildly exertional in nature. Patient states she is little little winded and is felt sweaty. Patient denies any nausea or vomiting. Patient does not not have a prior history of IA however her sister has had a heart attack. Patient did have blood work, EKG, troponin, chest x-ray did have a CT PE protocol. Patient was also given pain medication. CT PE negative. Chest x-ray clear. EKG nonischemic patient troponin negative. Upon reassessment the patient the patient did complain of some mild discomfort. Patient was ordered a full dose aspirin as well as nitroglycerin. I discussed patient with the hospitalist given the patient's prior history of cardiac disease in her family in early age puts her at increased risk especially given her chest pain history and stating that she does have mild exertional symptoms. Patient was admitted. Medication Reconcilliation Current Medication List: was personally reviewed by me Blood Pressure Screening Patient's blood pressure: Normal blood pressure Consults Time Called: 1630 Consulting Physician: Mary Bojorquez Returned Call: 1635 Discussed the patient's case with Mary Bojorquez. The patient will be evaluated for further treatment and disposition. Impression Primary Impression: Chest pain Scribe Attestation The scribe's documentation has been prepared under my direction and personally reviewed by me in its entirety. I confirm that the note above accurately reflects all work, treatment, procedures, and medical decision making performed by me. Departure Information Dispostion Being Evaluated By Hospitalist Referrals Albaro Gabriel D.Abbie (PCP) Patient Instructions My [facility] Problem Qualifiers Primary Impression: Chest pain Chest pain type: unspecified Qualified Codes: R07.9 - Chest pain, unspecified
[2017-04-11] MEDS ORDERED: OPTIRAY 320 IV PRN (15:00)
[2017-04-11 15:12] LABS: BASO % 0.4 %; BASO ABS # 0.03 K/uL (0-0.2); EOS ABS # 0.07 K/uL (0-0.5); HEMATOCRIT 45.1 % (37-47); HEMOGLOBIN 15.3 g/dL (12.0-16.0); IG# 0.01 K/uL (0.00-0.02); LYMPH % 47.5 %; LYMPH ABS # 3.23 K/uL (1.2-3.4); MEAN CELL VOLUME 90.6 fL (80-100); MEAN CORPUSCULAR HEMOGLOBIN 30.7 pg (25-34); MEAN CORPUSCULAR HGB CONC 33.9 g/dl (32-36); MEAN PLATELET VOLUME 10.4 fL (7.4-10.4); MONO % 7.1 %; MONO ABS # 0.48 K/uL (0.11-0.59); NEUT % 43.9 %; NEUT ABS # 2.98 K/uL (1.4-6.5); PLATELET COUNT 198 K/uL (130-400); RED CELL DISTRIBUTION WIDTH SD 39.9 fL (36.4-46.3)
[2017-04-11 15:22] LABS: PTT PATIENT 25.7 SECONDS (21.0-31.0)
[2017-04-11 15:28] LABS: ALBUMIN 4.2 gm/dl (3.4-5.0); ALT/SGPT 39 U/L (12-78); AST/SGOT 18 U/L (15-37); BLOOD UREA NITROGEN 20 mg/dl (7-18); CALCIUM 9.9 mg/dl (8.5-10.1); CARBON DIOXIDE 26 mmol/L (21-32); CREATININE 1.16 mg/dl (0.60-1.20); GLUCOSE 95 mg/dl (70-99); LIPASE 203 U/L (73-393); POTASSIUM 4.2 mmol/L (3.5-5.1); SODIUM 139 mmol/L (136-145)
[2017-04-11 15:33] LABS: ISTAT IONIZED CALCIUM 1.31 mmol/l (1.12-1.32); ISTAT POTASSIUM 4.3 mEq/L (3.3-5.0)
[2017-04-11 15:33] LABS: ALKALINE PHOSPHATASE 61 U/L (45-117); TOTAL PROTEIN 7.7 gm/dl (6.4-8.2)
--- NOTE | 2017-04-11 15:40 | DIAGNOSTIC IMAGING REPORT ---
CHEST ONE VIEW PORTABLE CLINICAL HISTORY: CHEST PAIN dyspnea COMPARISON STUDY: 08/12/2012 FINDINGS: Chronic postoperative change right pulmonary apex. Lungs are clear. Diaphragms are smooth. No evidence for cardiac enlargement. IMPRESSION: Chronic change. No acute process. The above report was generated using voice recognition software. It may contain grammatical, syntax or spelling errors. Electronically signed by: Endy Plascencia M.D. 04/11/2017 3:39 PM Dictated Date/Time: 04/11/2017 3:38 PM
--- NOTE | 2017-04-11 16:12 | DIAGNOSTIC IMAGING REPORT ---
CT ANGIOGRAM OF THE CHEST CLINICAL HISTORY: Atypical chest pain. COMPARISON STUDY: Chest x-ray dated 04/11/2017. Chest CT dated 04/04/2007. TECHNIQUE: Following the IV administration of 87 cc of Optiray 320, CT angiogram of the chest was performed from the upper abdomen to the thoracic inlet utilizing the pulmonary embolus protocol. Images are reviewed in the axial, sagittal, and coronal planes. 3-D MIPS images are created and assessed. IV contrast was administered without complication. A dose lowering technique was utilized adhering to the principles of ALARA. CT DOSE: 291.56 mGy.cm FINDINGS: Thyroid: Imaged portions of the thyroid gland are normal in size and attenuation. A 10 mm low-attenuation nodule is seen in the right lobe. Thoracic aorta: The thoracic aorta is normal in caliber and demonstrates standard 3-vessel arch anatomy. No dissection is seen. Pulmonary vasculature: The pulmonary trunk is normal in caliber. There are no filling defects identified in main, lobar, or segmental pulmonary branches to suggest pulmonary embolus. Heart: The heart is normal in size and configuration, and without pericardial effusion. Lungs and pleural spaces: There are trace pleural effusions. Dependent atelectasis is observed. No airspace consolidation is seen typical for pneumonia. The trachea and central airways are clear. Mediastinum: There is no mediastinal lymphadenopathy. Lisa: Clear. Axillae: There is no axillary lymphadenopathy. Upper abdomen: Partially visualized upper abdominal viscera is within normal limits. Skeletal structures: No lytic or blastic bony lesions are seen. IMPRESSION: 1. There is no evidence of pulmonary embolus in the main, lobar, or segmental pulmonary arteries. 2. There are trace pleural effusions. The lungs are otherwise clear. 3. There is a 1.0 cm low-attenuation nodule in the right thyroid lobe. Consider follow-up with a nonemergent thyroid ultrasound for further assessment. Electronically signed by: Landon Raza M.D. 04/11/2017 4:10 PM Dictated Date/Time: 04/11/2017 4:02 PM
[2017-04-11] MEDS ORDERED: NITROGLYCERIN 0.4 MG SL PER TAB CHARGE SL STA (16:30)
[2017-04-11] MEDS ORDERED: ASPIRIN 324 MG CHEW PO STA (16:30)
[2017-04-11 17:23] VITALS: O2SAT 96; Ht 162.6 cm; Wt 64.9 kg
[2017-04-11] MEDS ORDERED: NITROGLYCERIN 0.4 MG SL PER TAB CHARGE SL PRN (17:45)
[2017-04-11] MEDS ORDERED: ACETAMINOPHEN 325 MG TAB PO PRN (17:45)
[2017-04-11] MEDS ORDERED: POLYETHYLENE (MIRALAX) 17 GM PACK PO PRN (17:45)
[2017-04-11] MEDS ORDERED: ONDANSETRON INJ 2 MG/ML 2 ML VIAL IV PRN (17:45)
[2017-04-11] MEDS ORDERED: ASPI325T45 PO (18:49)
[2017-04-11] MEDS ORDERED: TRAMADOL HCL 50 MG TAB PO PRN (19:00)
--- NOTE | 2017-04-11 19:08 | History and Physical ---
History & Physical Date & Time of Service: Apr 11, 2017 at 18:11 Chief Complaint: Chest Pain Primary Care Physician: Albaro Gabriel D.O. History of Present Illness Source: patient, clinic records, hospital records Pt is a 56 y/o F with PMH subclavian vein thrombosis, Protein S deficiency, migraine, dyslipidemia, chronic R shoulder pain presented to ER with c/o chest tightness. Pt states past 4 days with left sided chest tightness that occurs with exertion with associated "winded" sensation & hot/sweaty sensation. Reports when resting symptoms resolve. Doesn't think has had a fever. She states sometimes has LE edema, hasn't noticed any today. Hx migraines. reports had DUNBAR 4 days ago that was a "normal DUNBAR and not migraine". She took Monica D and DUNBAR resolved. Denies N/V/D/C, dizziness, syncope, vision changes, neck pain, orthopnea, palpitations, cough, sore throat, choking, otalgia, rhinorrhea, abdominal pain, paresthesias, weakness, extremity weakness, rashes, urinary symptoms, indigestion. Denies heavy lifting, injury, prolonged immobilization. Hx stress echo 08/12/12 - no ischemia, LV systolic function normal In ER today no leukocytosis, Cr: 1.1 (0.9 baseline). negative troponin, negative CXR, CTA chest negative for PE. EKG: NSR no acute ST elevation. Pt given 1 nitro SL with relief of chest tightness. Past Medical/Surgical History Medical Problems: (1) Antiphospholipid syndrome Permanent Comment: Symptoms in past, borderline diagnosis. 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 (2) CA IN SITU BREAST Status: Resolved (3) Headache Status: Resolved (4) HX-VENOUS THROMBOSIS&EMBOLISM Status: Resolved (5) HYDROMYELIA Status: Chronic (6) Migraine Status: Resolved (7) Migraine headache Status: Chronic (8) MIGRAINE W/O AURA W/O INTRACT MGRN W/O STATUS MIGRAINOSUS Status: Chronic (9) PRIMARY HYPERCOAGULABLE STATE Status: Chronic (10) Protein S deficiency Status: Chronic (11) Subclavian vein thrombosis Status: Chronic (12) Thoracic outlet Status: Chronic (13) Thoracic outlet syndrome Status: Resolved Surgical Problems: (1) H/O: hysterectomy Status: Resolved (2) Hx of appendectomy Status: Resolved (3) Hx of tonsillectomy Status: Resolved Family History Cancer Diabetes mellitus FH: gallbladder disease Heart disease Hypertension Kidney disease Kidney stones Lung disease Social History Smoking Status: Former Smoker (1ppd x 20 years, quit 1995) Smokeless Tobacco Use: No Alcohol Use: occasionally Drug Use: none Marital Status: Housing status: lives with family Occupational Status: employed Immunizations History of Tetanus Vaccine?: 1999 History of Pneumococcal: No History of Hepatitis B Vaccine: 1977 Multi-Drug Resistant Organisms History of MDRO: No Allergies Coded Allergies: Sulfa Drugs (Unverified Allergy, Mild, 04/11/17) Home Medications Scheduled Aspirin (Aspirin), 1 TAB PO DAILY Citalopram Hydrobromide (Celexa), 40 MG PO DAILY Naratriptan Hcl (Amerge), 2.5 MG PO PRN UD Nutritional Supplements (Amasa Oil), 500 MG PO DAILY Pravastatin (Pravachol ), 20 MG PO QPM Topiramate (Topamax), 100 MG PO BID Scheduled PRN Carisoprodol (Soma), 1 TAB PO BID PRN for Migraine Fexofenadine-Pseudoephedrine (Monica-D 24 Hour Allergy), 1 TAB PO DAILY PRN for ALLERGIC REACTION Fluticasone Propionate (Nasal) (Flonase Allergy Relief), 2 SPRAYS THOMAS DAILY PRN for Nasal Congestion Tramadol (Ultram), 50 MG PO Q6H PRN for Pain Review of Systems Constitutional: No weight loss Eyes: No worsening of vision, No eye pain, No redness, No discharge ENT: No hearing loss, No unusual epistaxis, No trouble swallowing Respiratory: No sputum, No wheezing, No hemoptysis Cardiovascular: + chest pain, + problem reported (see HPI), No PND, No palpitations Abdomen: No pain, No nausea, No vomiting, No diarrhea, No constipation, No GI bleeding Musculoskeletal: + joint pain (chronic R shoulder pain), No calf pain Genitourinary - Female: No dysuria, No urinary frequency, No urinary urgency, No urinary incontinence, No urinary retention, No hematuria Neurologic: No memory loss, No paralysis, No weakness, No numbness/tingling, No vertigo Psychiatric: No depression symptoms, No anxiety Endocrine: No excessive thirst, No excessive urination Hematologic / Lymphatic: No abnormal bleeding/bruising, No night sweats Integumentary: No rash, No itch Physical Exam Vital Signs Date Time Temp Pulse Resp B/P (MAP) Pulse Ox O2 Delivery O2 Flow Rate FiO2 04/11/17 17:23 96 Room Air 04/11/17 16:49 80 14 96 04/11/17 16:48 137/87 04/11/17 15:55 76 04/11/17 15:49 82 18 96 04/11/17 15:44 81 16 95 04/11/17 14:55 85 18 158/111 98 Room Air 04/11/17 14:47 99 Room Air 04/11/17 14:46 158/111 04/11/17 12:46 97 Room Air 04/11/17 12:44 36.7 102 18 102/71 98 Room Air General Appearance: WD/WN, no apparent distress Head: normocephalic, atraumatic Eyes: normal inspection, PERRL, EOMI, sclerae normal ENT: hearing grossly normal, pharynx normal, + pertinent finding (mucous membranes moist ) Neck: supple, no JVD, trachea midline Respiratory/Chest: chest non-tender, lungs clear, normal breath sounds, no respiratory distress, no accessory muscle use Cardiovascular: regular rate, rhythm, no edema, no murmur, normal peripheral pulses Abdomen/GI: normal bowel sounds, non tender, soft Back: normal inspection Extremities/Musculoskelatal: normal inspection, no calf tenderness, normal capillary refill, no pedal edema, normal range of motion, non-tender Neurologic/Psych: alert, normal mood/affect, oriented x 3 Skin: normal color, warm/dry Diagnostics Laboratory Results Results Past 24 Hours Test 04/11/17 14:55 04/11/17 15:02 04/11/17 17:33 Range/Units White Blood Count 6.80 4.8-10.8 K/uL Red Blood Count 4.98 4.2-5.4 M/uL Hemoglobin 15.3 12.0-16.0 g/dL Hematocrit 45.1 37-47 % Mean Corpuscular Volume 90.6 80-100 fL Mean Corpuscular Hemoglobin 30.7 25-34 pg Mean Corpuscular Hemoglobin Concent 33.9 32-36 g/dl Platelet Count 198 130-400 K/uL Mean Platelet Volume 10.4 7.4-10.4 fL Neutrophils (%) (Auto) 43.9 % Lymphocytes (%) (Auto) 47.5 % Monocytes (%) (Auto) 7.1 % Eosinophils (%) (Auto) 1.0 % Basophils (%) (Auto) 0.4 % Neutrophils # (Auto) 2.98 1.4-6.5 K/uL Lymphocytes # (Auto) 3.23 1.2-3.4 K/uL Monocytes # (Auto) 0.48 0.11-0.59 K/uL Eosinophils # (Auto) 0.07 0-0.5 K/uL Basophils # (Auto) 0.03 0-0.2 K/uL RDW Standard Deviation 39.9 36.4-46.3 fL RDW Coefficient of Variation 12.0 11.5-14.5 % Immature Granulocyte % (Auto) 0.1 % Immature Granulocyte # (Auto) 0.01 0.00-0.02 K/uL Prothrombin Time 10.6 9.0-12.0 SECONDS Prothromb Time International Ratio 1.0 0.9-1.1 Activated Partial Thromboplast Time 25.7 21.0-31.0 SECONDS Partial Thromboplastin Ratio 1.0 Sodium Level 139 136-145 mmol/L Potassium Level 4.2 3.5-5.1 mmol/L Chloride Level 106 98-107 mmol/L Carbon Dioxide Level 26 21-32 mmol/L Anion Gap 7.0 18.0 16-25 mmol/L Blood Urea Nitrogen 20 7-18 mg/dl Creatinine 1.16 0.60-1.20 mg/dl Est Creatinine Clear Calc Drug Dose 49.7 ml/min Estimated GFR () 60.1 Estimated GFR (Non- 51.9 BUN/Creatinine Ratio 17.4 10-20 Random Glucose 95 70-99 mg/dl Calcium Level 9.9 8.5-10.1 mg/dl Total Bilirubin 0.4 0.2-1 mg/dl Direct Bilirubin < 0.1 0-0.2 mg/dl Aspartate Amino Transf (AST/SGOT) 18 15-37 U/L Alanine Aminotransferase (ALT/SGPT) 39 12-78 U/L Alkaline Phosphatase 61 45-117 U/L Pro-B-Type Natriuretic Peptide 64 0-900 pg/ml Total Protein 7.7 6.4-8.2 gm/dl Albumin 4.2 3.4-5.0 gm/dl Lipase 203 73-393 U/L Bedside Hemoglobin 15.3 12.0-16.0 g/dl Bedside Hematocrit 45 37-47 % Bedside Sodium 142 135-144 mEq/L Bedside Potassium 4.3 3.3-5.0 mEq/L Bedside Chloride 105 101-112 mEq/L Bedside Total CO2 24 24-31 mEq/l Bedside Blood Urea Nitrogen 22 7-18 mg/dl Bedside Creatinine 1.0 0.6-1.3 mg/dl Bedside Glucose (other) 99 70-99 mg/dl Bedside Ionized Calcium (Elly) 1.31 1.12-1.32 mmol/l Bedside Troponin I < 0.030 0-0.045 ng/ml Diagnostic Radiology CXR: IMPRESSION: Chronic change. No acute process. CTA CHEST: IMPRESSION: 1. There is no evidence of pulmonary embolus in the main, lobar, or segmental pulmonary arteries. 2. There are trace pleural effusions. The lungs are otherwise clear. 3. There is a 1.0 cm low-attenuation nodule in the right thyroid lobe. Consider follow-up with a nonemergent thyroid ultrasound for further assessment. EKG EKG: NSR, rate 95, no ST elevations noted EKG read by cardiology: Normal sinus rhythm Normal ECG When compared with ECG of 27-AUG-2013 14:59, No significant change was found Confirmed by Sarkis Peña ([id number]) on 04/11/2017 5:00:43 PM Impression Assessment and Plan CHEST PAIN R/O ACS. Risk factors: hyperlipidemia, protein S deficiency Pt presented with intermittent left sided chest tightness with exertion x 4 days. Initial troponin negative. Negative CXR, CTA chest. EKG NSR no acute ST changes. Given 1 nitro with relief of chest tightness. Vitals stable. One BP elevated at 158/111, however following BP's ok. DDX: GERD, anxiety, musculoskeletal -Monitor Vitals -Will trend cardiac enzymes -ECHO -Cardiology consult -lipid panel in AM, continue statin -continue ASA -Nitro prn CP and repeat EKG for CP -Repeat EKG in am R THYROID NODULE On CT chest a 1.0 cm low-attenuation nodule in the right thyroid lobe seen. Consider follow-up with a nonemergent thyroid ultrasound for further assessment. DYSLIPIDEMIA lipid panel 2016: total: 194, LDL: 122, HDL: 47, Triglycerides: 126 -lipid panel in am -continue Pravachol HX MIGRAINE DUNBAR no DUNBAR currently -continue Topamax DEPRESSION stable -continue Celexa CHRONIC R SHOULDER PAIN -continue Ultram prn pain DVT PROPHYLAXIS -Lovenox SQ DISPOSITION -admit tele -Full Code -Follows with Dr Gabriel for routine care Pt was seen with Dr Razo. See addendum Agree with above H and P.Briefly 56F presents with chest pain going on for last few days. It comes on its own. Pressure like feeling 6/10 in severity. No radiation. HAs some cough. Has sweating when has pain. No dizziness. Currently resting comfortably and hemodynamically stable.Also says on and off her legs gets swollen p/e Ge not in distress Cvs s1 and s2 heard no murmurs Rs xcta b/l no added sounds Abd benign Cbns non focal Ext no edema a/p Chest pain rule out acs initial workup negative f/u echo and serial ce cardiology consult in am hx of depression and migraine continue home meds Level of Care Telemetry Advanced Directives Existing Living Will: Yes Existing Power of Theology Professor: Yes Resuscitation Status FULL RESUSCITATION VTE Prophylaxis VTE Risk Assessment Done? Y/N: Yes Risk Level: Moderate Given or contraindicated: Enoxaparin (Lovenox)SQ Additional Copies To Albaro Gabriel, D.O.
[2017-04-11 19:30] VITALS: BP 141/85; PULSE 81; TEMP 36.7; O2SAT 98
[2017-04-11 20:00] VITALS: O2SAT 98
[2017-04-11] MEDS ORDERED: FLUTICASONE PROPIONATE NA SPR 16 GM BTL NAE PRN (20:00)
[2017-04-11] MEDS ORDERED: IV FLUIDS COMPLETED PRN (20:30)
[2017-04-11] MEDS ORDERED: ENOXAPARIN 40 MG/0.4 ML SYR SC SCH (21:00)
[2017-04-11] MEDS ORDERED: PRAVASTATIN SOD 20 MG TAB PO SCH (21:00)
[2017-04-11] MEDS: TOPIRAMATE 100 MG TAB PO SCH (21:21)
[2017-04-11 23:43] VITALS: BP 133/78; PULSE 63; TEMP 36.3; O2SAT 97
[2017-04-12 03:11] LABS: HEMATOCRIT 42.8 % (37-47); HEMOGLOBIN 14.4 g/dL (12.0-16.0); MEAN CELL VOLUME 90.3 fL (80-100); MEAN CORPUSCULAR HEMOGLOBIN 30.4 pg (25-34); MEAN CORPUSCULAR HGB CONC 33.6 g/dl (32-36); MEAN PLATELET VOLUME 10.2 fL (7.4-10.4); PLATELET COUNT 167 K/uL (130-400); RED CELL DISTRIBUTION WIDTH CV 11.9 % (11.5-14.5); RED CELL DISTRIBUTION WIDTH SD 39.5 fL (36.4-46.3)
[2017-04-12 03:36] LABS: CALCIUM 9.3 mg/dl (8.5-10.1); CREATININE 0.94 mg/dl (0.60-1.20)
[2017-04-12 05:08] VITALS: BP 110/73; PULSE 67; TEMP 36.6; O2SAT 96
[2017-04-12 07:52] VITALS: BP 107/79; PULSE 78; TEMP 36.7; O2SAT 97
[2017-04-12] MEDS ORDERED: ATROPINE SULFATE 0.1 MG/ML 5ML SYR ONE (08:58)
[2017-04-12] MEDS ORDERED: DOBUTamine HCL 12.5 MG/ML 20 ML VIAL ONE (08:58)
[2017-04-12] MEDS ORDERED: METOPROLOL TARTRATE 1 MG/ML VIAL ONE (08:58)
[2017-04-12] MEDS ORDERED: ASPIRIN 325 MG ECTAB PO SCH (09:00)
[2017-04-12] MEDS ORDERED: CITALOPRAM 40 MG TAB PO SCH (09:00)
[2017-04-12] MEDS ORDERED: PERFLUTREN LIPID MICROSPHERE (DEFINITY) IV ONE (10:08)
--- NOTE | 2017-04-12 10:15 | Progress Note ---
Progress Note Date of Service Apr 12, 2017. Progress Note Nonischemic dobutamine stress echocardiogram Ok to resume diet
--- NOTE | 2017-04-12 10:45 | DOBUTAMINE ECHO ---
*NOTICE TO RECEIVING REPUBLICAN AGENCY This information is strictly Confidential and protected under [place] law. [place] law prohibits you from making any further disclosure of this information unless further disclosure is expressly permitted by the written consent of the person to whom it pertains or is authorized by law. A general authorization for the release of medical or other information is not sufficient for this purpose. Hospital accepts no responsibility if the information is made available to any other person, INCLUDING THE PATIENT. Interpretation Summary * Name: MARIA LUZ GLASER Study Date: 04/12/2017 08:48 AM BP: 132/86 mmHg * Patient Location: [facility]\S\N276\S\2 HR: 68 * : 1960 (M/d/yyyy) Gender: Female Height: 64 in * Age: 56 yrs Ethnicity: CA Weight: 147 lb * Ordering Physician: Davy Villarreal * Referring Physician: Self, Referred * Performed By: Rosemary Rutherford RDCS * * Reason For Study: CHEST PAIN * BSA: 1.7 m2 * -- Conclusions -- * Nonischemic dobutamine stress echocardiogram. * No arrhythmias. * Equivocal upsloping ST segment depression inferiorly. * Normal HR and BP response to dobutamine infusion. * Chest pain was not reproduced during exam. * At rest, normal LV chamber size with mild concentric LVH. * Normal LV systolic function, EF 55-60%. * No segmental left ventricular wall motion abnormalities are noted. * Grade I diastolic dysfunction. * No significant valvular pathology. Procedure Details * A contrast injection of Definity was performed to improve assessment of LV function. * Contrast was injected into an intravenous site in the left arm. * One vial of Definity ultrasound contrast was diluted in normal saline to a total volume of 10 ml. A total of '6.5' ml of solution was administered during imaging. * Lot # [id number] of Definity utilized for procedure. * Expiration date APR 12. * The attending nurse who injected the contrast agent was EZEQUIEL BOJORQUEZ RN. Left Ventricle * The left ventricle is normal in size. * There is mild concentric left ventricular hypertrophy. * Ejection Fraction = 60-65%. * Left ventricular systolic function is normal. * No segmental left ventricular wall motion abnormalities are noted. * Resting wall motion: Normal. Stress wall motion: Appropriate increase in Left ventricular systolic function and decrease in cavity size. No stress induced segmental wall motion abnormalities. Right Ventricle * The right ventricular cavity size is normal (basal dimension <4.2 cm in right ventricular apical 4-chamber view). * The right ventricular systolic function is normal as assessed by tricuspid annular plane systolic excursion (TAPSE) (normal >1.5 cm). Atria * The left atrial size is normal. * Right atrial size is normal. * No ASD detected; PFO is not assessed. Mitral Valve * The mitral valve is normal in structure and function. Tricuspid Valve * The tricuspid valve is normal in structure and function. Aortic Valve * The aortic valve is normal in structure and function. Pulmonic Valve * The pulmonary valve is not well seen, but the Doppler examination is normal without significant regurgitation or stenosis. Great Vessels * The aortic root is normal size. Pericardium * There is no pericardial effusion. Stress Parameters * The baseline ECG displays normal sinus rhythm. * No arrhythmia were noted with stress. * The stress portion of this study was personally supervised by the undersigned interpreting physician. * Rest heart rate was '68' BPM. * Rest blood pressure was '132/86' * Maximum heart rate achieved was 162 bpm. * Maximum heart rate was 100 % of maximum age-predicted heart rate. * Maximum blood pressure was '164/91' * Maximum Dobutamine infusion rate was '40' mcg/kg/min. * A total of .5 mg of intravenous Atropine was used to supplement Dobutamine for heart rate response. * Dobutamine infusion was terminated due to achieving target heart rate * A total of 5 mg of IV Metoprolol was administered to reverse Dobutamine-induced tachycardia. Left Ventricular Diastolic Function * Grade I diastolic dysfunction, (abnormal relaxation pattern). MMode 2D Measurements and Calculations IVSd 1.1 cm IVSs 1.5 cm LVIDd 3.5 cm LVIDs 2.4 cm LVPWd 1.3 cm LVPWs 1.6 cm IVS/LVPW 0.87 FS 29.6 % EDV(Teich) 49.8 ml ESV(Teich) 21.1 ml EF(Teich) 57.6 % EDV(cubed) 41.8 ml ESV(cubed) 14.6 ml EF(cubed) 65.0 % % IVS thick 36.7 % % LVPW thick 22.7 % LV mass(C)d 137.0 grams LV mass(C)dI 79.8 grams/m\S\2 LV mass(C)s 133.7 grams LV mass(C)sI 77.9 grams/m\S\2 SV(Teich) 28.7 ml SI(Teich) 16.7 ml/m\S\2 SV(cubed) 27.2 ml SI(cubed) 15.8 ml/m\S\2 Ao root diam 3.0 cm Ao root area 7.0 cm\S\2 LA dimension 3.1 cm LA/Ao 1.1 LVAd ap4 21.8 cm\S\2 LVLd ap4 7.2 cm EDV(MOD-sp4) 53.7 ml EDV(sp4-el) 55.8 ml LVAs ap4 12.4 cm\S\2 LVLs ap4 6.2 cm ESV(MOD-sp4) 22.7 ml ESV(sp4-el) 21.3 ml EF(MOD-sp4) 57.8 % EF(sp4-el) 61.9 % LVAd ap2 20.0 cm\S\2 LVLd ap2 7.0 cm EDV(MOD-sp2) 49.3 ml EDV(sp2-el) 48.3 ml LVAs ap2 12.2 cm\S\2 LVLs ap2 6.1 cm ESV(MOD-sp2) 21.4 ml ESV(sp2-el) 20.8 ml EF(MOD-sp2) 56.6 % EF(sp2-el) 57.0 % LVLd %diff -3.36 % EDV(MOD-bp) 52.1 ml LVLs %diff -1.85 % ESV(MOD-bp) 22.2 ml EF(MOD-bp) 57.5 % SV(MOD-sp4) 31.1 ml SI(MOD-sp4) 18.1 ml/m\S\2 SV(MOD-sp2) 27.9 ml SI(MOD-sp2) 16.3 ml/m\S\2 SV(MOD-bp) 29.9 ml SI(MOD-bp) 17.4 ml/m\S\2 SV(sp4-el) 34.5 ml SI(sp4-el) 20.1 ml/m\S\2 SV(sp2-el) 27.6 ml SI(sp2-el) 16.1 ml/m\S\2 Doppler Measurements and Calculations MV E max ronit 48.5 cm/sec MV A max ronit 82.5 cm/sec MV E/A 0.59 MV dec time 0.25 sec Ao V2 max 106.2 cm/sec Ao max PG 4.5 mmHg Ao max PG (full) 1.9 mmHg LV V1 max PG 2.6 mmHg LV V1 max 80.0 cm/sec
[2017-04-12] MEDS: TOPIRAMATE 100 MG TAB PO SCH (10:46)
[2017-04-12 12:13] VITALS: BP 129/80; PULSE 76; TEMP 36.3; O2SAT 97
--- NOTE | 2017-04-12 13:59 | CARDIOLOGY CONSULTATION ---
DATE OF CONSULTATION: 04/12/2017 DATE OF CONSULTATION: 04/12/2017 CONSULTATION REQUESTED BY: Dr. Gordon. REASON FOR CONSULTATION: Chest pain. HISTORY OF PRESENT ILLNESS: Ms. Eastman is a very pleasant 56-year-old woman who presented to [facility] Emergency Department on 04/11/2017 with a complaint of chest tightness. The patient states that she has been having the pain off and on for the last 4 days. She states that she normally wakes up with it during the day and then seems to go away as her day goes on. Can wax and wane throughout the day. She states that there might be some correlation with exertion, but she is not exactly sure. When the discomfort does occur, she describes it as a tightness sensation that radiates across her left precordium and this is occasionally associated with shortness of breath, diaphoresis and nausea but associated symptoms do not always occur. On the morning before presentation she states that she woke up with the discomfort and it persisted all day without relented so she came into the Emergency Department. Since admission, her discomfort has resolved and she has not had any further. Currently she is without complaint. PAST SURGICAL HISTORY: 1. Appendectomy. 2. Tonsillectomy. 3. Hysterectomy. MEDICAL ILLNESSES: 1. Antiphospholipid syndrome. 2. Breast carcinoma. 3. History of DVT. 4. Hydromyelia. 5. Migraines. 6. Protein S deficiency. 7. History of subclavian vein thrombosis. 8. Thoracic outlet syndrome. FAMILY HISTORY: Denies any premature coronary artery disease or sudden cardiac . SOCIAL HISTORY: The patient is a former smoker, quit in 1995. Denies any alcohol or recreational drug use. She is . She lives at home with her family. She does not exercise on a regular basis. REVIEW OF SYSTEMS: As per HPI, all other review of systems reviewed and negative at this time. ALLERGIES: SULFA. MEDICATIONS AN OUTPATIENT: 1. Aspirin 81 mg daily. 2. Celexa daily. 3. Amerge daily. 4. Pravachol 20 mg daily. 5. Topamax b.i.d. PHYSICAL EXAMINATION: VITALS: Temperature 36.3, pulse 78, respiratory rate 12, blood pressure 107/79. GENERAL: Awake, alert, oriented x3 in no acute distress. HEAD, EYES, EARS, NOSE, AND THROAT: Normocephalic, atraumatic. Pupils equal, round, reactive to light and accommodation. Extraocular muscles intact. Anicteric sclerae. Moist mucous membranes. NECK: No JVD, no bruit. CARDIOVASCULAR: Regular. No S4. Normal S1 and S2. No S3. No murmurs, rubs or gallops. PULMONARY: Clear to auscultation bilaterally. No rales, rhonchi, or wheezing. ABDOMEN: Bowel sounds x4, soft. No rebound, guarding, tenderness. No organomegaly. EXTREMITIES: No clubbing, cyanosis or edema. +2 pedal pulses bilaterally. SKIN: Warm and dry. TEST RESULTS: Exercise stress echocardiogram performed today showed nonischemic dobutamine stress echocardiogram, no arrhythmias. Equivocal upsloping ST segment depressions inferiorly. Normal heart rate and blood pressure response to dobutamine infusion. Chest pain was not reproduced during the exam. At rest, normal LV chamber size with mild concentric LVH, normal LV systolic function, EF 55-60%, no segmental left ventricle wall motion abnormalities are noted. Grade 1 diastolic dysfunction, no significant valvular pathology. IMPRESSION: Noncardiac chest pain. RECOMMENDATIONS: It was my pleasure to see Mrs. Eastman in consultation today. The patient was counseled that given the fact that her stress test was nonischemic and that there does not appear to be any cardiac component to her chest discomfort, so no further cardiac testing or intervention is necessary at this time. It is okay to discharge patient to home from a cardiac standpoint and no cardiac followup is necessary.
[2017-04-12 15:58] VITALS: BP 127/76; PULSE 67; TEMP 36.7; O2SAT 96
[2017-04-12 16:29] VITALS: O2SAT 96
--- NOTE | 2017-04-12 16:32 | Progress Note ---
Medicine Progress Note Date & Time of Visit: Apr 12, 2017 at 16:32 . Subjective Doing well. No chest pain or SOB. . Objective Last 8 Hrs Date Time Temp Pulse Resp B/P (MAP) Pulse Ox O2 Delivery O2 Flow Rate FiO2 04/12/17 15:58 36.7 67 16 127/76 (93) 96 04/12/17 12:13 36.3 76 20 129/80 (96) 97 04/12/17 12:00 Room Air Physical Exam: General- no distress Lungs- clear to auscultation; no respiratory distress Cardiovascular- RRR; no murmur; no gallop; no JVD; no pretibial edema Abdomen- + bowel sounds, soft, nontender Extremities- no cyanosis; no calf tenderness Neuro- alert, oriented Skin- warm & dry . Laboratory Results: Last 24 Hours Test 04/12/17 02:58 White Blood Count 4.90 K/uL Red Blood Count 4.74 M/uL Hemoglobin 14.4 g/dL Hematocrit 42.8 % Mean Corpuscular Volume 90.3 fL Mean Corpuscular Hemoglobin 30.4 pg Mean Corpuscular Hemoglobin Concent 33.6 g/dl RDW Standard Deviation 39.5 fL RDW Coefficient of Variation 11.9 % Platelet Count 167 K/uL Mean Platelet Volume 10.2 fL Sodium Level 140 mmol/L Potassium Level 4.0 mmol/L Chloride Level 108 mmol/L Carbon Dioxide Level 26 mmol/L Anion Gap 6.0 mmol/L Blood Urea Nitrogen 17 mg/dl Creatinine 0.94 mg/dl Est Creatinine Clear Calc Drug Dose 61.4 ml/min Estimated GFR () 77.5 Estimated GFR (Non- 66.9 BUN/Creatinine Ratio 17.7 Random Glucose 83 mg/dl Calcium Level 9.3 mg/dl Troponin I 0.030 ng/ml Triglycerides Level 100 mg/dl Cholesterol Level 155 mg/dl HDL Cholesterol 46 mg/dl LDL Cholesterol, Calculated 89 mg/dl VLDL Cholesterol, Calculated 20 mg/dl Cholesterol/HDL Ratio 3.4 Assessment & Plan CHEST PAIN Presented to ED with 4 day history of chest pressure, usually with exertion. EKG demonstrated NSR, no acute changes. Serial troponins negative. Cardiology consulted. Rest echo demonstrated mild concentric LVH, LVEF 55-60%, normal LV wall motion, grade I diastolic dysfunction, no significant valvular disease. No stress-induced ischemia with dobutamine infusion. PE ruled out by CTA; no evidence of aortic disease. Consider outpatient GI evaluation if symptoms recur. THYROID NODULE 10 mm nodule right lobe of thyroid incidentally noted on CTA chest. Outpatient TFT's and thyroid ultrasound recommended. Further management per guidelines. VTE PROPHYLAXIS SQ enoxaparin. DISPOSITION Discharge to home. Family Medicine follow-up with Dr. Albaro Gabriel. . Current Inpatient Medications: Current Inpatient Medications Medications (Trade) Dose Ordered Sig/Toribio Route Start Time Stop Time Status Last Admin Dose Admin Ioversol (Optiray 320) 100 ml UD PRN IV 04/11/17 15:00 04/15/17 14:59 Acetaminophen (Tylenol Tab) 650 mg Q4H PRN PO 04/11/17 17:45 05/11/17 17:44 Ondansetron HCl (Zofran Inj) 4 mg Q6H PRN IV 04/11/17 17:45 05/11/17 17:44 Nitroglycerin (Nitrostat Tab) 0.4 mg UD PRN SL 04/11/17 17:45 05/11/17 17:44 Polyethylene (Miralax Powder Packet) 17 gm DAILY PRN PO 04/11/17 17:45 05/11/17 17:44 Enoxaparin Sodium (Lovenox Inj) 40 mg HS SC 04/11/17 21:00 05/11/17 20:59 04/11/17 21:21 40 MG Aspirin (Ecotrin Tab) 325 mg DAILY PO 04/12/17 09:00 05/12/17 08:59 04/12/17 10:46 325 MG Citalopram Hydrobromide (celeXA TAB) 40 mg DAILY PO 04/12/17 09:00 05/12/17 08:59 04/12/17 10:46 40 MG Fluticasone Propionate (Flonase Nasal [place]) 2 sprays DAILY PRN THOMAS 04/11/17 20:00 05/11/17 19:59 Pravastatin Sodium (Pravachol Tab) 20 mg QPM PO 04/11/17 21:00 05/11/17 20:59 04/11/17 21:21 20 MG Topiramate (Topamax Tab) 100 mg BID PO 04/11/17 21:00 05/11/17 20:59 04/12/17 10:46 100 MG Tramadol HCl (Ultram Tab) 50 mg Q6H PRN PO 04/11/17 19:00 05/11/17 18:59 Miscellaneous (Iv Fluids Completed) 1 ea PRN PRN N/A 04/11/17 20:30 04/11/18 20:29
--- NOTE | 2017-04-12 16:40 | Discharge Instructions ---
Discharge Instructions Date of Service Apr 12, 2017. Admission Reason for Admission: Chest Pain Discharge Discharge Diagnosis / Problem: chest pain- no sign of heart attack or blood clot Discharge Goals Goal(s): Decrease discomfort Activity Recommendations Activity Limitations: resume your previous activity . Instructions / Follow-Up Instructions / Follow-Up APPOINTMENTS: FAMILY MEDICINE 04/17/2017 11:10 AM Albaro Gabriel, DO OTHER INSTRUCTIONS: Tests for chest pain looked OK. No sign of heart attack or blood clots in chest. CT chest showed a small nodule in your thyroid gland. Please ask Dr. Gabriel to order an ultrasound for further evaluation. Seek medical attention if you have: * temperature above 101 * chest pain or trouble breathing * abdominal pain, nausea, vomiting * diarrhea, dark stools or bloody stools * any unanswered questions or concerns Call 911 if symptoms are severe. Call if you have any questions or problems. My cell # is [phone]. You can also reach a [facility] hospitalist on duty at [facility] 24 hours a day by calling [phone]. Please take good care of yourself. Kareem Gordon . Current Hospital Diet Patient's current hospital diet: AHA Diet (Heart Healthy) Discharge Diet Recommended Diet: AHA Diet (Heart Healthy) Procedures Procedures Performed: CT chest -no sign of blood clots -there was a small nodule in your thyroid gland stress test -no sign of significant blockage in your coronary arteries Pending Studies Studies pending at discharge: no Laboratory Results Lipid Panel Test 04/12/17 02:58 Range/Units Triglycerides Level 100 0-150 mg/dl Cholesterol Level 155 0-200 mg/dl HDL Cholesterol 46 mg/dl Cholesterol/HDL Ratio 3.4 LDL Cholesterol, Calculated 89 mg/dl Medical Emergencies . Who to Call and When: Medical Emergencies: If at any time you feel your situation is an emergency, please call 911 immediately. . Non-Emergent Contact Non-Emergency issues call your: Primary Care Provider, Hospital Doctor . . "Provider Documentation" section prepared by Kareem Gordon. . VTE Core Measure Inpt VTE Proph given/why not?: Enoxaparin (Lovenox)SQ
[2017-04-12 17:02] VITALS: BP 127/76; PULSE 67; TEMP 36.7; O2SAT 96
--- NOTE | 2017-04-13 18:28 | Discharge Summary ---
Discharge Summary Date of Service Apr 13, 2017. Discharge Summary Admission Date: Apr 11, 2017 at 17:30 Discharge Date: Apr 12, 2017 Discharge Disposition: Home Principal Diagnosis: chest pain- IN and PE ruled out OTHER ACUTE / NEW DIAGNOSES: thyroid nodule 10 mm right lobe . Secondary Diagnoses/Problems: Chronic and Resolved Medical Problems: (1) Antiphospholipid syndrome Permanent Comment: Symptoms in past, borderline diagnosis. 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 (2) CA IN SITU BREAST Status: Resolved (3) Headache Status: Resolved (4) HX-VENOUS THROMBOSIS&EMBOLISM Status: Resolved (5) HYDROMYELIA Status: Chronic (6) Migraine Status: Resolved (7) Migraine headache Status: Chronic (8) MIGRAINE W/O AURA W/O INTRACT MGRN W/O STATUS MIGRAINOSUS Status: Chronic (9) PRIMARY HYPERCOAGULABLE STATE Status: Chronic (10) Protein S deficiency Status: Chronic (11) Subclavian vein thrombosis Status: Chronic (12) Thoracic outlet Status: Chronic (13) Thoracic outlet syndrome Status: Resolved Surgical Problems: (1) H/O: hysterectomy Status: Resolved (2) Hx of appendectomy Status: Resolved (3) Hx of tonsillectomy Status: Resolved . Procedures: cardiac monitoring dobutamine stress echo CTA chest . Consultations: Cardiology with Dr. Villarreal . Pending Studies/Follow-Up: Please check outpatient TFT's and thyroid ultrasound Re: thyroid nodule. . Medication Reconciliation Continued Medications: Aspirin (Aspirin) 325 Mg Tab 1 TAB PO DAILY Carisoprodol (Soma) 350 Mg Tab 1 TAB PO BID PRN for Migraine, TAB Citalopram Hydrobromide (Celexa) 20 Mg Tab 40 MG PO DAILY, TAB Fexofenadine-Pseudoephedrine (Monica-D 24 Hour Allergy) 1 Tab Tab 1 TAB PO DAILY PRN for ALLERGIC REACTION Fluticasone Propionate (Nasal) (Flonase Allergy Relief) 50 Mcg/Act Spr 2 SPRAYS THOMAS DAILY PRN for Nasal Congestion Naratriptan Hcl (Amerge) 2.5 Mg Tab 2.5 MG PO PRN UD, #9 1 tab po daily at onset of migraine Nutritional Supplements ([place] Oil) 1 Cap Cap 500 MG PO DAILY Pravastatin (Pravachol ) 20 Mg Tab 20 MG PO QPM, 0 Refills Topiramate (Topamax) 100 Mg Tab 100 MG PO BID, TAB Tramadol (Ultram) 50 Mg Tab 50 MG PO Q6H PRN for Pain, TAB Admission Information HPI (per Admitting provider): Pt is a 56 y/o F with PMH subclavian vein thrombosis, Protein S deficiency, migraine, dyslipidemia, chronic R shoulder pain presented to ER with c/o chest tightness. Pt states past 4 days with left sided chest tightness that occurs with exertion with associated "winded" sensation & hot/sweaty sensation. Reports when resting symptoms resolve. Doesn't think has had a fever. She states sometimes has LE edema, hasn't noticed any today. Hx migraines. reports had DUNBAR 4 days ago that was a "normal DUNBAR and not migraine". She took Monica D and DUNBAR resolved. Denies N/V/D/C, dizziness, syncope, vision changes, neck pain, orthopnea, palpitations, cough, sore throat, choking, otalgia, rhinorrhea, abdominal pain, paresthesias, weakness, extremity weakness, rashes, urinary symptoms, indigestion. Denies heavy lifting, injury, prolonged immobilization. Hx stress echo 08/12/12 - no ischemia, LV systolic function normal In ER today no leukocytosis, Cr: 1.1 (0.9 baseline). negative troponin, negative CXR, CTA chest negative for PE. EKG: NSR no acute ST elevation. Pt given 1 nitro SL with relief of chest tightness. . Physical Exam (per Admitting): General Appearance: WD/WN, no apparent distress Head: normocephalic, atraumatic Eyes: normal inspection, PERRL, EOMI, sclerae normal ENT: hearing grossly normal, pharynx normal, + pertinent finding (mucous membranes moist ) Neck: supple, no JVD, trachea midline Respiratory/Chest: chest non-tender, lungs clear, normal breath sounds, no respiratory distress, no accessory muscle use Cardiovascular: regular rate, rhythm, no edema, no murmur, normal peripheral pulses Abdomen/GI: normal bowel sounds, non tender, soft Back: normal inspection Extremities/Musculoskelatal: normal inspection, no calf tenderness, normal capillary refill, no pedal edema, normal range of motion, non-tender Neurologic/Psych: alert, normal mood/affect, oriented x 3 Skin: normal color, warm/dry Hospital Course CHEST PAIN Presented to ED with 4 day history of chest pressure, usually with exertion. EKG demonstrated NSR, no acute changes. Serial troponins negative. Cardiology consulted. Rest echo demonstrated mild concentric LVH, LVEF 55-60%, normal LV wall motion, grade I diastolic dysfunction, no significant valvular disease. No stress-induced ischemia with dobutamine infusion. PE ruled out by CTA; no evidence of aortic disease. Consider outpatient GI evaluation if symptoms recur. THYROID NODULE 10 mm nodule right lobe of thyroid incidentally noted on CTA chest. Outpatient TFT's and thyroid ultrasound recommended. Further management per guidelines. VTE PROPHYLAXIS SQ enoxaparin. DISPOSITION Discharge to home. Family Medicine follow-up with Dr. Albaro Gabriel. . Discharge Instructions Date of Service Apr 12, 2017. Admission Reason for Admission: Chest Pain Discharge Discharge Diagnosis / Problem: chest pain- no sign of heart attack or blood clot Discharge Goals Goal(s): Decrease discomfort Activity Recommendations Activity Limitations: resume your previous activity . Instructions / Follow-Up Instructions / Follow-Up APPOINTMENTS: FAMILY MEDICINE 04/17/2017 11:10 AM Albaro Gabriel, OTHER INSTRUCTIONS: Tests for chest pain looked OK. No sign of heart attack or blood clots in chest. CT chest showed a small nodule in your thyroid gland. Please ask Dr. Gabriel to order an ultrasound for further evaluation. Seek medical attention if you have: * temperature above 101 * chest pain or trouble breathing * abdominal pain, nausea, vomiting * diarrhea, dark stools or bloody stools * any unanswered questions or concerns Call 911 if symptoms are severe. Call if you have any questions or problems. My cell # is [phone]. You can also reach a [facility] hospitalist on duty at [facility] 24 hours a day by calling [phone]. Please take good care of yourself. Kareem Gordon . Current Hospital Diet Patient's current hospital diet: AHA Diet (Heart Healthy) Discharge Diet Recommended Diet: AHA Diet (Heart Healthy) Procedures Procedures Performed: CT chest -no sign of blood clots -there was a small nodule in your thyroid gland stress test -no sign of significant blockage in your coronary arteries Pending Studies Studies pending at discharge: no Laboratory Results Lipid Panel Test 04/12/17 02:58 Range/Units Triglycerides Level 100 0-150 mg/dl Cholesterol Level 155 0-200 mg/dl HDL Cholesterol 46 mg/dl Cholesterol/HDL Ratio 3.4 LDL Cholesterol, Calculated 89 mg/dl Medical Emergencies . Who to Call and When: Medical Emergencies: If at any time you feel your situation is an emergency, please call 911 immediately. . Non-Emergent Contact Non-Emergency issues call your: Primary Care Provider, Hospital Doctor . . "Provider Documentation" section prepared by Kareem Gordon. . VTE Core Measure Inpt VTE Proph given/why not?: Enoxaparin (Lovenox)SQ .
== END 2017-04-12 17:49 | disposition home or self-care (01) ==
LOC: C.EDB 12:40 → C.MED 17:30 → ENRESERV 18:12
PROVIDERS: ADMIT Internal Medicine; ATTEND Hospitalist
DX: R07.9 Chest pain, unspecified (principal); D68.61 Antiphospholipid syndrome; G43.909 Migraine, unspecified, not intractable, without status migrainosus; Z88.2 Allergy status to sulfonamides; Z85.3 Personal history of malignant neoplasm of breast; Z86.718 Personal history of other venous thrombosis and embolism; Z86.711 Personal history of pulmonary embolism; Z90.710 Acquired absence of both cervix and uterus; Z90.89 Acquired absence of other organs; Z79.82 Long term (current) use of aspirin; Z79.899 Other long term (current) drug therapy; Z80.0 Family history of malignant neoplasm of digestive organs; Z83.3 Family history of diabetes mellitus; Z82.49 Family history of ischemic heart disease and other diseases of the circulatory system; Z84.1 Family history of disorders of kidney and ureter

== ENCOUNTER → 2017-04-29 | Outpatient (CLI) | payer OTHER ==
[~2017-04-29] MED LIST changes: +ASPI325T45 PO; -ASPI81TA28 PO; -TOPI50TA16 PO
--- NOTE | 2017-04-29 12:03 | DIAGNOSTIC IMAGING REPORT ---
GUIDANCE NEEDLE PLACEMENT CLINICAL HISTORY: THYROID NODULE nodule TECHNIQUE: Ultrasound guided fine-needle aspiration COMPARISON STUDY: 04/17/2017 FINDINGS: Following description of procedure and informed consent, 2 passes with a 25-gauge needle were made to the solitary nodule of the right thyroid. There were no complications. Pathology initially indicated adequate specimen. IMPRESSION: Successful fine-needle aspiration nodular density of the right thyroid. No complications The above report was generated using voice recognition software. It may contain grammatical, syntax or spelling errors. Electronically signed by: Endy Plascencia M.D. 04/29/2017 12:01 PM Dictated Date/Time: 04/29/2017 12:00 PM
== END | disposition home or self-care (01) ==
LOC: C.ULTR 10:50
PROVIDERS: ATTEND Family Medicine
DX: C73 Malignant neoplasm of thyroid gland (principal)

== ENCOUNTER 2023-04-08 10:37 | Inpatient (IN) ==
[2023-04-08] MEDS ORDERED: ALBUT/IPRATROP 3MG/0.5MG NEB 3 ML VIAL NEB STA (11:35)
[2023-04-08] MEDS ORDERED: SODIUM CHLORIDE 0.9% 1,000 ML IV STA (11:35)
--- NOTE | 2023-04-08 11:35 | Emergency Department Note ---
Impression & Plan Elevated troponin, Pleural effusion, bilateral, Chest pain, HARGROVE (dyspnea on exertion), COVID-19 ED Provider Note NAME: MARIA LUZ GLASER AGE: 62 SEX: F : 1960 ARRIVES VIA: Walk-In INFORMANT: Patient, ED PROVIDER(S): Geraldo Mckeon MD CHIEF COMPLAINT: MEDICAL DECISION MAKING: Patient presents due to concern for chest tightness shortness of breath palpitations in the setting of recent COVID illness. IV was established and blood work is obtained. We did discuss CAT scan imaging to rule out PE. The patient does have a prior history of subclavian vein thrombosis but this was secondary to thoracic outlet syndrome and the patient has had a negative venogram during her last surveillance.. The patient does not have any calf pain or leg swelling. Patient is low risk Wells score. I discussed with the patient that we would discuss her symptoms blood work and chest x-ray along with EKG and if something were of concern or if the patient symptoms did not maggie we could consider CAT scan which she is agreeable to. Blood work shows a normal white count H&H and platelet count. The patient's kidney function unremarkable. Hypokalemia noted at 3.2. Sugar borderline at 66. Patient's initial troponin 28.6. Given this with the patient's chest pain shortness of breath and COVID illness CT angiography of the chest was ordered. Also given this I did speak the on-call hospitalist and patient was admitted to the medicine service. I did speak with the Lance and the patient was admitted by Dr. Xie. Of note patient CT angio of the chest does show trace pleural and pericardial effusions but no PE. Discussion w/ other healthcare providers: Viktoria Lucas PA-C and Dr. Xie inpatient medicines service Prior /Outside records reviewed: Reviewed a pain management visit from 10/06/2022 with Yair Guillen. The patient was diagnosed with cervicogenic headache myofascial pain and cervical facet syndrome Differential diagnosis: Cardiac ischemia, aortic dissection, pulmonary embolism, pneumothorax, pneumonia, pericarditis, myocarditis, GERD, cholecystitis, pancreatitis, musculoskeletal, as well as other pathologies were considered. Diagnostics, as interpreted by me: ECG: Normal sinus rhythm, rate of 71, normal intervals, normal axis no ST elevations or TWI Cardiac monitoring: An order was placed for continuous cardiac monitoring. The monitor shows a rate of 72 with sinus rhythm. Patient was placed on pulse oximetry Medical decision rules: Heart score Imaging studies: I informally interpreted the patient's chest x-ray which does not show obvious pneumonia with formal report to follow. HPI: Patient presents to the behest of her primary care doctor. The patient states that she was symptomatic for upper respiratory type symptoms headache and cough and did have a COVID test completed Saturday results on Saturday. The patient states that she had called the office today to be prescribed Paxlovid but I told him about palpitations and thus referred here for further evaluation and treatment. The patient states that she did have a prior history of subclavian vein thrombosis status post correction and does receive venograms about every 2 years last being about 2 years prior. The patient was told that she was to continue taking her 324 of aspirin which she is continue to do. The patient did have some centralized chest pain that she described as burning lasted approximate 5 minutes and was nonradiating. No nausea vomiting or diaphoresis associated with the pain. Patient does admit to poor p.o. intake since Saturday. The patient also felt weak fatigued and had some nausea earlier today. Patient denies any recent surgeries procedures or hospitalizations no recent prolonged car or plane travel. Patient has had 2 COVID vaccination. The patient does complain of some occasional exertional shortness of breath but no orthopnea. The patient states that she does have some occasional leg swelling but this is not unchanged for her. Patient denies any calf pain. PAST MEDICAL HISTORY: See Below PAST SURGICAL HISTORY: See Below SOCIAL HISTORY: See Below HOME MEDICATIONS: See Below ALLERGIES: See Below VITALS: See Below PHYSICAL EXAMINATION: Wearing glasses GENERAL: NAD, non-toxic. EYE EXAM: Normal conjunctiva. PERRL, no anisocoria and EOM's grossly intact w/o pain. OROPHARYNX: Moist mucus membranes, grossly normal dentition. NECK: Supple, no nuchal rigidity, no adenopathy, non-tender. No signs of meningismus. FROM of the neck with good chin to chest and neck extension. No stridor. LUNGS: Clear to auscultation. Normal chest wall mechanics. HEART: NSR, no MRG. ABDOMEN: Abdomen soft, non-tender, no masses, no rebound or guarding. BACK: No CVA TTP. SKIN: No rashes and no bruising. UPPER EXTREMITIES: Upper extremities are grossly normal. LOWER EXTREMITIES: Grossly normal, no edema. Negative Homans' sign bilaterally. NEURO EXAM: A&O x3, cranial nerves II-XII grossly intact, normal speech, moves all 4 extremities. Past Med/Surg History Medical History HTN (hypertension) Atypical chest pain Thoracic back pain Cervicogenic headache Radicular pain of thoracic region Thoracic facet syndrome Thoracic outlet syndrome Antiphospholipid syndrome History of anesthesia reaction DIFFICULTY WAKING UP Hypothyroidism Breast cancer 2004-L HAD RADIATION, NO CHEMO Protein S deficiency Thyroid cancer Anxiety Migraine Guvbpxv-Gpruz-Nhltg disease Deep vein thrombosis 2002-SUBLCLAVIAN VEIN Hyperlipidemia Surgical History History of resection of rib Partial right first rib Arterial thoracic outlet syndrome of right subclavian artery REMOVED 1ST R RIB Hx of lumpectomy L History of breast biopsy L MALIGNANT History of bilateral tubal ligation History of total abdominal hysterectomy W R OOPHORECTOMY History of appendectomy History of colonoscopy History of tooth extraction WISDOM TEETH History of thyroidectomy, total CANCER--06/2017 @ [facility] H/O angioplasty X6--"NARROWING IN VEIN" LAST 11/2016 @ [place] [facility] W DR[facility] 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 Beliefs That Will Affect Care: None marital status: Current Living Situation: Spouse current occupational status: employed current occupation: book-keeping Other Information That Helps Us Care for You: Yes Feels Safe at Home: Yes Assistive Devices: Contacts and Glasses Allergies Allergies Allergy/AdvReac Type Severity Reaction Status Date / Time Sulfa (Sulfonamide Allergy Intermediate itchy Verified 04/08/23 12:37 Antibiotics) rash nifedipine Allergy Unknown Verified 04/08/23 18:17 dexamethasone AdvReac Headache Verified 04/08/23 12:37 Home Meds Home Medications Medication Instructions Recorded Confirmed salmon oil-omega-3 fatty acids 1 tab PO QAM ##0 08/27/13 04/08/23 1,000 mg-200 mg capsule ([place] Oil-) tramadol 50 mg tablet 50 mg PO Q6H PRN Pain 11/29/17 04/08/23 multivitamin with minerals 1 tab PO DAILY 11/13/18 04/08/23 (Multiple Vitamin-Minerals tablet) carisoprodol 350 mg tablet 350 mg PO BID PRN Muscle Spasm 12/03/20 04/08/23 levothyroxine 100 mcg tablet 100 mcg PO MOTUWETHFRSA@0600 12/03/20 04/08/23 aspirin 81 mg capsule 324 mg PO DAILY 04/26/22 04/08/23 rosuvastatin 10 mg tablet 10 mg PO PM 04/26/22 04/08/23 losartan 25 mg tablet 25 mg PO DAILY 02/20/23 04/08/23 citalopram 20 mg tablet 30 mg PO DAILY 04/08/23 04/08/23 levothyroxine 100 mcg tablet 50 mcg PO DE GUZMAN@0600 04/08/23 04/08/23 metformin 500 mg tablet,extended 500 mg PO BID 04/08/23 04/08/23 release 24 hr Previous Rx's Medication Instructions Recorded topiramate 200 mg tablet 200 mg PO BID #180 tabs 07/19/22 eptinezumab-jjmr 100 mg/mL 300 mg (3 mL) IV .COMPLEX #3 mL 01/31/23 intravenous solution (Vyepti) naratriptan 2.5 mg tablet 2.5 mg PO DIRECTED PRN Migraine 02/20/23 Headache #9 tabs ondansetron 4 mg disintegrating 4 mg PO DAILY PRN nausea and 02/20/23 tablet vomiting #30 tabs Results & Data (ED) Vital Signs Vital Signs - 24 hr 04/08/23 10:43 04/08/23 12:38 04/08/23 12:38 Temperature 36.9 C Temperature Source Temporal Artery Scan Pulse Rate 91 H 69 Pulse Rate [Apical] 69 Pulse Rhythm Regular Pulse Rhythm [Apical] Regular Pulse Strength [Apical] Normal Respiratory Rate 20 17 17 Respiratory Effort / Characteristics Non-Labored Spontaneous Non-Labored Spontaneous Respiratory Depth Normal Normal Blood Pressure 121/83 Blood Pressure [Right Arm] 163/92 H Blood Pressure Mean 95 Blood Pressure Mean [Right Arm] 115 Blood Pressure Position Sitting Blood Pressure Position [Right Arm] Semi-fowlers Pulse Oximetry 96 95 95 Oxygen Delivery Method Room Air Room Air Room Air Sepsis Recent Fever Within 48 Hours No Sepsis New/Unexplained Change in Mental Status No Sepsis Action Taken by Nursing No Action Required 04/08/23 12:51 04/08/23 13:52 Temperature Temperature Source Pulse Rate 77 Pulse Rate [Apical] 91 H Pulse Rhythm Pulse Rhythm [Apical] Pulse Strength [Apical] Respiratory Rate 18 Respiratory Effort / Characteristics Non-Labored Spontaneous Respiratory Depth Normal Blood Pressure Blood Pressure [Right Arm] 170/87 H Blood Pressure Mean Blood Pressure Mean [Right Arm] 114 Blood Pressure Position Blood Pressure Position [Right Arm] Pulse Oximetry 97 Oxygen Delivery Method Room Air Sepsis Recent Fever Within 48 Hours Sepsis New/Unexplained Change in Mental Status Sepsis Action Taken by Longterm Medications Current Medication List: was personally reviewed by me Laboratory Data Attestation: I reviewed the patient's lab results. 04/08/23 12:30 04/08/23 12:30 Lab Results 04/08/23 Range/Units 12:30 WBC 5.21 (4.8-10.8) K/ul RBC 5.05 (4.20-5.40) M/uL Hgb 15.5 (12.0-16.0) g/dl Hct 45.6 (37.0-47.0) % MCV 90.3 (80.0-100.0) fL MCH 30.7 (25.0-34.0) pg MCHC 34.0 (32.0-36.0) g/dL RDW Std Deviation 40.9 (36.4-46.3) fL RDW Coeff of Tatyana 12.4 (11.5-14.5) % Plt Count 153 (130-400) K/uL MPV 11.2 (9.4-12.4) fL Immature Gran % (Auto) 0.2 % Neut % (Auto) 66.4 % Lymph % (Auto) 23.0 % [place] % (Auto) 10.2 % Eos % (Auto) 0.0 % Baso % (Auto) 0.2 % Neut # (Auto) 3.46 (1.40-6.50) K/uL Lymph # (Auto) 1.20 (1.20-3.40) K/uL [place] # (Auto) 0.53 (0.11-0.59) K/uL Eos # (Auto) 0.00 (0.00-0.50) K/uL Baso # (Auto) 0.01 (0.00-0.20) K/uL Immature Gran # (Auto) 0.01 (0.01-0.20) K/uL PT 10.9 (9.0-12.0) Seconds INR 1.0 (0.9-1.1) APTT 30 (21-31) Seconds PTT Ratio 1.1 Sodium 140 (136-145) mmol/L Potassium 3.2 L (3.5-5.1) mmol/L Chloride 103 (98-107) mmol/L Carbon Dioxide 22 (21-32) mmol/L Anion Gap 15 H (3-11) BUN 13 (6-23) mg/dl Creatinine 0.85 (0.6-1.2) mg/dl Est Cr Clr Drug Dosing 57.7 ml/min Est GFR ( Amer) 83.9 ml/min Est GFR (Non-Af Amer) 72.4 ml/min BUN/Creatinine Ratio 15.3 (10-20) Glucose 66 L (70-99(Fasting)) mg/dl Calcium 8.7 (8.6-10.3) mg/dl Total Bilirubin 0.3 (0.2-1.0) mg/dl AST 36 (13-39) U/L ALT 31 (7-52) U/L Alkaline Phosphatase 38 (34-104) U/L Troponin I High Sens 28.6 H (0-14) pg/ml Total Protein 7.2 (6.0-8.3) gm/dl Albumin 4.4 (3.4-5.0) gm/dl Globulin 2.8 (2.5-4.0) gm/dl Albumin/Globulin Ratio 1.6 (0.9-2) Administered Medications Discontinued Medications Acetaminophen (Acetaminophen 500 Mg Tab) 1,000 mg PO NOW STA Stop: 04/08/23 12:19 Last Admin: 04/08/23 12:32 Dose: 1,000 mg Documented By: AMS Albuterol (Albut/Ipratrop 3mg/0.5mg Neb 3 Ml Vial) 3 ml NEB NOW STA; Protocol Stop: 04/08/23 11:36 Last Admin: 04/08/23 12:31 Dose: 3 ml Documented By: DANIEL Sodium Chloride (Nss) 1,000 mls @ 999 mls/hr IV .Q1H1M STA Stop: 04/08/23 12:35 Last Infusion: 04/08/23 14:59 Dose: Infused Documented By: Admin: 04/08/23 12:30 Dose: 999 mls/hr Documented By: DANIEL Sodium Chloride (Nss) 1,000 mls @ 999 mls/hr IV .Q1H1M ONE Stop: 04/08/23 13:18 Last Admin: 04/08/23 14:59 Dose: Not Given Documented By: DANIEL Ioversol (Optiray 320 125ml) 118 ml IV ONCE ONE Stop: 04/08/23 13:45 Last Admin: 04/08/23 13:44 Dose: 118 ml Documented By: JOSE ELIAS Ketorolac Tromethamine (Ketorolac Tromethamine 15 Mg/Ml Vial) 10 mg IV NOW ONE Stop: 04/08/23 12:19 Last Admin: 04/08/23 12:32 Dose: 10 mg Documented By: DANIEL Ondansetron HCl (Ondansetron Inj 2 Mg/Ml 2 Ml Vial) 4 mg IV NOW STA Stop: 04/08/23 12:19 Last Admin: 04/08/23 12:31 Dose: 4 mg Documented By: Admin: 04/08/23 12:31 Dose: 4 mg Documented By: DANIEL Potassium Chloride (Potassium Chloride Crtab 20 Meq Tabcr) 40 meq PO NOW STA Stop: 04/08/23 14:05 Last Admin: 04/08/23 14:58 Dose: 40 meq Documented By: [facility] Imaging Data Radiologist's Impression: Chest X-Ray 04/08/23 11:35 XR chest 1V portable CLINICAL HISTORY: Chest pain, nonspecific TECHNIQUE: Single frontal radiograph of the chest was obtained. Comparison: Comparison is made to chest radiograph 06/22/2020 FINDINGS: No lines and tubes are seen. The cardiomediastinal silhouette is normal. The lungs are clear. No evidence of pleural effusion or pneumothorax. IMPRESSION: No acute chest disease. ACT 112: Negative or not required by law. Electronically signed by: Jarret Whitley M.D. 04/08/2023 12:06 PM Chest CTA 04/08/23 13:23 CHEST CTA for PULMONARY ARTERIES CT DOSE: 362.67 mGy.cm HISTORY: Atypical chest pain. Shortness of breath. TECHNIQUE: Multiaxial CT images of the chest were performed following the intravenous administration of contrast to evaluate the pulmonary arteries. 3D/Maximal intensity projection images were also obtained. Sagittal and coronal reformations were also reviewed. A dose lowering technique was utilized adhering to the principles of ALARA. COMPARISON STUDY: Chest CTA 12/02/2020. FINDINGS: Normal caliber thoracic aorta with no evidence for a dissection. Trace pericardial effusion and trace pleural effusions have developed in the interval. The heart is normal in size. No filling defects within the pulmonary arteries to suggest a pulmonary embolus. Limited views the upper abdomen demonstrate a normal liver, spleen, and adrenal glands. Prior thyroidectomy. Normal esophagus. No mediastinal or hilar lymphadenopathy. No acute fractures. No pneumothorax. The central airways are patent. Mild dependent changes seen within the lung bases. Otherwise, no focal lung consolidations to suggest pneumonia. No evidence for pulmonary edema. IMPRESSION: 1. No evidence for a pulmonary embolus. 2. Trace pleural and pericardial effusions. 3. No focal lung consolidations to suggest a pneumonia. ACT 112: Negative or not required by law. Electronically signed by: Chicho Quispe M.D. 04/08/2023 2:06 PM Discharge Plan Visit Data Chief Complaint: Referred by Doctor Stated Complaint: COVID POSITIVE, SOB , RAPID HEART RATE, WEAKNESS ED Provider: Geraldo Mckeon Discharge Problem: Elevated troponin, Pleural effusion, bilateral, Chest pain, HARGROVE (dyspnea on exertion), COVID-19 Discharge Problem: Chest pain Qualifiers: Chest pain type: unspecified Qualified Code(s): R07.9 - Chest pain, unspecified
--- NOTE | 2023-04-08 12:07 | XRay Report ---
XR chest 1V portable CLINICAL HISTORY: Chest pain, nonspecific TECHNIQUE: Single frontal radiograph of the chest was obtained. Comparison: Comparison is made to chest radiograph 06/22/2020 FINDINGS: No lines and tubes are seen. The cardiomediastinal silhouette is normal. The lungs are clear. No evid ence of pleural effusion or pneumothorax. IMPRESSION: No acute chest disease. ACT 112: Negative or not required by law. Electronically signed by: Jarret Whitley M.D. 04/08/2023 12:06 PM
[2023-04-08] MEDS ORDERED: ACETAMINOPHEN 500 MG TAB PO STA (12:18)
[2023-04-08] MEDS ORDERED: KETOROLAC TROMETHAMINE 15 MG/ML VIAL IV ONE (12:18)
[2023-04-08] MEDS ORDERED: SODIUM CHLORIDE 0.9% 1,000 ML IV ONE (12:18)
[2023-04-08] MEDS: ONDANSETRON INJ 2 MG/ML 2 ML VIAL IV STA (12:31)
[2023-04-08 13:00] LABS: Albumin Globulin Ratio 1.6 (0.9-2); Albumin Level 4.4 gm/dl (3.4-5.0); BUN Creatinine Ratio 15.3 (10-20); Bilirubin,Total 0.3 mg/dl (0.2-1.0); Calcium 8.7 mg/dl (8.6-10.3); Creatinine Clr Calc Pharmacy 57.7 ml/min; Est GFR (African American) 83.9 ml/min; Est GFR (Non-African American) 72.4 ml/min; Globulin 2.8 gm/dl (2.5-4.0); Potassium 3.2 mmol/L (3.5-5.1); Total Protein 7.2 gm/dl (6.0-8.3)
[2023-04-08 13:06] LABS: Troponin I High Sensitivity 28.6 pg/ml (0-14)
[2023-04-08 13:42] LABS: Basophils # (auto) 0.01 K/uL (0.00-0.20); Basophils % (auto) 0.2 %; Hematocrit (blood only) 45.6 % (37.0-47.0); Hemoglobin 15.5 g/dl (12.0-16.0); Immature Granulocytes # (auto) 0.01 K/uL (0.01-0.20); Immature Granulocytes % (auto) 0.2 %; Mean Corpuscular Hemoglobin 30.7 pg (25.0-34.0); Mean Corpuscular Volume 90.3 fL (80.0-100.0); Mean Platelet Volume 11.2 fL (9.4-12.4); Monocytes # (auto) 0.53 K/uL (0.11-0.59); Monocytes % (auto) 10.2 %; Neutrophils # (auto) 3.46 K/uL (1.40-6.50); Neutrophils % (auto) 66.4 %; Platelet Count 153 K/uL (130-400); RDW Coefficient of Variation 12.4 % (11.5-14.5); RDW Standard Deviation 40.9 fL (36.4-46.3); Red Blood Count 5.05 M/uL (4.20-5.40); White Blood Count 5.21 K/ul (4.8-10.8)
[2023-04-08] MEDS ORDERED: OPTIRAY 320 125ml IV ONE (13:44)
[2023-04-08 13:45] LABS: Partial Thromboplastin Ratio 1.1; Partial Thromboplastin Time 30 Seconds (21-31); Prothrombin Time 10.9 Seconds (9.0-12.0)
[2023-04-08] MEDS ORDERED: POTASSIUM CHLORIDE CRTAB 20 MEQ TABCR PO STA (14:04)
--- NOTE | 2023-04-08 14:08 | CT Scan Report ---
CHEST CTA for PULMONARY ARTERIES CT DOSE: 362.67 mGy.cm HISTORY: Atypical chest pain. Shortness of breath. TECHNIQUE: Multiaxial CT images of the chest were performed following the intravenous administration of contrast to evaluate the pulmonary arteries. 3D/Maximal intensity projection images were also obta ined. Sagittal and coronal reformations were also reviewed. A dose lowering technique was utilized a dhering to the principles of ALARA. COMPARISON STUDY: Chest CTA 12/02/2020. FINDINGS: Normal caliber thoracic aorta with no evidence for a dissection. Trace pericardial effusion and trace pleural effusions have developed in the interval. The heart is normal in size. No filling defects within the pulmonary arteries to suggest a pulmonary embolus. Limited views the upper abdomen demonstrate a normal liver, spleen, and adrenal glands. Prior thyroidectomy. Normal esophagus. No me diastinal or hilar lymphadenopathy. No acute fractures. No pneumothorax. The central airways are redmond nt. Mild dependent changes seen within the lung bases. Otherwise, no focal lung consolidations to sug gest pneumonia. No evidence for pulmonary edema. IMPRESSION: 1. No evidence for a pulmonary embolus. 2. Trace pleural and pericardial effusions. 3. No focal lung consolidations to suggest a pneumonia. ACT 112: Negative or not required by law. Electronically signed by: Chicho Quispe M.D. 04/08/2023 2:06 PM
--- OUTSIDE RECORDS SUMMARY | 2023-04-08 14:23 | External Medical Summary | Summary of Care ---
Author Name Unknown Organization [facility] Address [address] [address] Phone [phone] Care Team Providers Care Braid Cutter Name Role Phone Albaro Gabriel DO Primary Care Provider Reason for Visit * Reason Onset Date Comments Medication Refill 04/05/2023 Encounter Details Date Type Department Care Team (Late st Contact Info) Description 04/05/2023 Refill Family Practice [facility] [place] [address] [facility] [place] [address] Albaro Gabriel DO [address] [facility] [place] [address] Gastroesophageal reflux disease without esophagitis Allergies Active Allergy Reactions Criticality Noted Date Comments Nifedipine Medium 08/31/2013 Migraine headache at first dosing Sulfa Antibiotics 04/16/2002 rash documented as of this encounter (statuses as of 04/05/2023) Medications Medication Sig Dispensed Refills Start Date End Date Status fluticasone (FLONASE) 50 MCG/ACT nasal spray USE TWO SPRAYS IN EACH NOSTRIL ONCE DAILY NEEDED FOR ALLERGY 1 Bottle 0 02/01/2015 Active Additional Information Patient not taking.Reported on 01/17/2023 naratriptan (AMERGE) 2.5 MG Tablet Take 1 Tablet by mouth as needed. 0 10/29/2016 Active ondansetron ODT (ZOFRAN) 4 MG TBDPIndications:Ir ritable bowel syndrome with both constipation and diarrhea 1-2 tabs every 4-6 hours as needed 30 Tab 3 05/05/2019 Active Additional Information Patient not taking.Reported on 11/14/2022 Topiramate 200 MG Oral Tablet (topAMAX) Take 1 Tablet by mouth in the morning and 1 Tablet before bedtime. 0 11/12/2020 Active [place] Oil Oral Capsule Take by mouth. 0 Active Multivitamin Adults Oral Tablet Take by mouth. 0 Ac tive Metamucil Smooth Texture 28.3 % Oral Powder (Psyllium) Take by mouth . 0 Active Vyepti 100 MG/ML Intravenous Solution (Eptinezumab-jjmr) Administer 1 mL intravenously once. Every 3 months 0 Active Aspirin 81 MG Oral Tablet Delayed Release Take 2 Tablets by mouth in the morning. 0 Active Celecoxib 200 MG Oral Capsule (CeleBREX) Take 1 Capsule by mouth in the morning. 0 05/23/2022 Active Vitamin B-2 100 MG Oral Tablet (vitamin B-2) Take 1 Tablet by mouth in the morning. 0 Active Rosuvastatin Calcium 10 MG Oral Tablet (Crestor)Indicatio ns:Dyslipidemia, goal LDL below 70 TAKE 1 TABLET BY MOUTH IN THE MORNING 90 Tablet 3 11/27/2022 Active metFORMIN HCl ER 500 MG Oral Tablet Extended Release 24 Hour (Glucophage XR)Indications:Gutierrez ght gain,Pre-diabetes Take 1 Tablet by mouth in the morning and 1 Tablet before bedtime. With meals (start ediwht only 1 pill / day for first 2 weeks. Titrate up as directed). 180 Tablet 3 12/04/2022 Active Losartan Potassium 25 MG Oral Tablet (Cozaar) Take 1 Tablet by mouth in the morning. 90 Tablet 3 01/04/2023 Active Omeprazole 20 MG Oral Capsule Delayed Release (PriLOSEC)Indicati ons:Gastroesophage al reflux disease without esophagitis TAKE 1 CAPSULE BY MOUTH ONCE DAILY ONE HOUR PRIOR TO FIRST MEAL OF THE DAY 90 Capsule 3 01/15/2023 Active Carisoprodol 350 MG Oral Tablet (Soma)Indications: Hereditary and idiopathic peripheral neuropathy,Vascula r thoracic outlet syndrome TAKE 1 TABLET BY MOUTH TWICE DAILY NEEDED FOR MUSCLE SPASM 10 Tablet 0 03/19/2023 Active traMADol HCl 50 MG Oral Tablet (Ultram)Indication s:Hereditary and idiopathic peripheral neuropathy,Migrain e without aura and without status migrainosus, not intractable,Neck pain Take 1 Tablet by mouth every 8 hours as needed for Pain, Severe or Pain, Moderate. 15 Tablet 0 03/19/2023 Active Citalopram Hydrobromide 20 MG Oral Tablet (CeleXA)Indication s:Moderate episode of recurrent major depressive disorder (HCC) Take 1.5 Tablets by mouth in the morning. 45 Tablet 5 03/19/2023 Active Levothyroxine Sodium 100 MCG Oral Tablet (Levoxyl)Indicatio ns:Post-surgical hypothyroidism,Pap illary carcinoma of thyroid (HCC) Take 1 tablet by mouth daily x6 days a week, half a tablet on day 7. 90 Tablet 3 04/05/2023 Active documented as of this encounter (statuses as of 04/05/2023) Active Problems Problem Noted Date Diagnosed Date Moderate episode of recurrent major depressive d isorder 06/04/2022 Dyslipidemia, goal LDL below 70 03/08/2021 Hypertension goal BP (blood pressure) < 130/80 1 05/09/2020 Hypothyroidism 03/08/2021 Protein S deficiency 03/08/2021 DVT (deep vein thrombosis) in 03/08/20 21 Prediabetes 09/06/2020 Overview: Per Prediabetes protocol Gastroesophageal reflux disease without esophagi tis 01/18/2020 Papillary carcinoma of thyroid 05/05/2019 History of thyroid cancer 01/07/2018 Pure hypercholesterolemia 10/07/2017 Post-surgical hypothyroidism 10/07/2017 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; ER and MA negative 10/22/2005 PELV PERIT ENDOMETRIOSIS 06/10/2002 COMMON MIGRAINE WITHOUT MENTION OF INTRACTABLE M IGRAINE 02/04/2002 [id number] DISORDER documented as of this encounter (statuses as of 04/05/2023) Resolved Problems Problem Noted Date Diagnosed Date Resolved Date Otalgia, right ear 05/07/2017 9 Papillary thyroid carcinoma 05/03/2017 01/07/2018 Persistent central canal syrinx 05/15/2016 05/05/2019 Acne 01/21/2014 07/08/2018 Myalgia and myositis 03/04/2013 017 Syrinx, persistent central canal 02/12/2012 05/15/2016 Syrinx of spinal cord 01/30/20122016 ADVANCE DIRECTIVE INFORMATION 04/17/2007 07/08/2018 Overview: Yes, Patient instructed to provide copy of advance directive for provider to review and to be scanned into Electronic Medical Record Anticoagulation management encounter 11/13/2002 12/23/2006 Encounter for therapeutic drug monitoring 11/13/2002 12/23/2006 DEEP PHLEBITIS-LEG NEC 11/13/200205/15 Other disorder of menstruati on and other abnormal bleeding from female genital tract 06/10/2002 05/15/2016 Abdominal pain 07/08/2018 documented as of this encounter (statuses as of 04/05/2023) Immunizations Name Administration Dates Next Due COVID-19 mRNA, LNP-s, No Pre serve, 2-Dose Series (51wan) 09/13/2020,08/25/2020 Pneumococcal Conjugate Vacci ne, 20-valent ([id number]) 11/28/2021 Seasonal Influenza, PF, 6 M & above, IM , (FluLaval or Fluzone) 12/05/2022,11/28/2021,12/05/2020,2019,01/08/2019,01/07/2018,12/19/2016 Seasonal Influenza, Quadriva lent, No Preserve, IM 11/18/2015,12/27/2014 Seasonal Influenza, Split, I IV3, With Preserve, Inj 01/08/2014,12/19/2012,12/10/2011,2010,01/24/2010,02/01/2009,01/02/2008,1 03/30/2006,02/05/2006 TD - Tetanus/Diptheria (ADULT) 08/24/1999 TDAP (age 10 and older)(Boostrix) 12/05/2022, documented as of this encounter Social History Tobacco Use Types Packs/Day Years Used Date Smoking Tobacco: Former Cigarettes 1 20 Smokeless Tobacco: Never Quit: 03/25/1995 Comments:Quit 1995 after wyatt christy 20 years Alcohol Use Standard Drinks/Week Comments Yes 0 (1 standard drink = 0.6 oz pur e alcohol) rare PHQ-2 Answer Date Recorded PHQ Adult Total Score 21 03/19/2023 Hunger Vital Sign Answer Date Recorded Worried About Running Out of Food in the Last Ye ar Never true 05/05/2019 Ran Out of Food in the Last Year Never true 05/05/2019 Sex and Gender Information Value Date Recorded Sex Assigned at Female 06/25/2018 12:18 PM EDT Gender Identity Female 06/25/2018 12:18 PM EDT Sexual Orientation Straight 06/25/2018 12 :18 PM EDT Job Start Date Occupation Industry Not on file Not on file Not on file documented as of this encounter Miscellaneous Notes * Telephone Encounter - Esteban Forbes RPh - 04/05/2023 9:20 PM ESTRefused Prescriptions: Disp Refills Omeprazole 20 MG Oral Capsule Delayed Rele*90 Cap*3 Refused By:ESTEBAN FORBES for Refusal: Too soon documented in this encounter Plan of Treatment Upcoming Encounters Date Type Department Care Team (Late st Contact Info) Description 04/22/2023 4:00 PM EST Office Visit Family Practice [facility] [place] [address] [place] [address] Josefina Scott PA-C [address] [facility] [place] [address] 05/17/2023 10:00 AM EST Telemedicine Otolaryngology [facility] [address] [facility] [place] [address] Layla Pearson MD [address] [place] [address] 07/08/2023 1:20 PM EDT Office Visit Family Practice [facility] [address] [facility] [place] [address] Albaro Gabriel DO [address] [facility] [place] [address] 09/05/2023 10:20 AM EDT Telemedicine Endocrinology, [place] [address], [place] [id number] Sheila Starr MD [address] [place] [address] 09/18/2023 1:30 PM EDT Office Visit Cardiology, [facility] [address] [facility] [place] [address] Endy Brumfield PA-C 132 [place] [address] Scheduled Procedures Name Priority Associated Diagnoses Date/Ti me COLONOSCOPY FLEXIBLE PROXIMAL DIAGNOSTIC Recall History of colon polyps Health Maintenance Due Date Last Done Comments Zoster Vaccines (1 of 2) 2008 COVID-19 Vaccine ( season) 2022 09/13/2020, 08/25/2020 Depression, Most Recent Score >= 10 (will fire each visit until score < 10) 03/20/2023 03/19/2023 TSH 09/18/2023 09/17/2022, 10/25, 05/10/2021, Additional history exists Mammogram 12/19/2023 12/18/2022, 11/24, 12/19/2021, Additional history exists GFR 02/02/2024 02/01/2023, 08/2022, 05/10/2021, Additional history exists COLONOSCOPY-EVERY 5 YRS AGES 18-100 04/27/2027 04/27/2022, 04/27/2022, 12/02/2009, Additional history exists Lipid Panel 05/29/2027 05/28/2022, 10/25, 08/10/2020, Additional history exists DTaP,Tdap,and Td Vaccines (3 - Td or Tdap) 12/05/2032 12/05/2022, 01/23/2012, 08/24/1999 Pap Smear Discontinued 10/10/2017, 02/22, 12/19/2012, Additional history exists Cologuard Discontinued 08/25/2020, 08/20/2020 Pneumococcal Vaccine: Pediatrics (0 to 5 Years) and At-Risk Patients (6 to 64 Years) Aged Out 11/28/2021 No longer eligible based on patient's age to complete this topic Colonoscopy Discontinued 04/27/2022, 05/2022, 12/02/2009, Additional history exists Colorectal Cancer Screening Discontinued Influenza Vaccine (FLU shot) Completed 12/05/2022, 11/28/2021, 12/05/2020, Additional history exists Fecal Occult Blood Test Discontinued GARDASIL-HPV IMMUNIZATION SERIES Aged Out No longer eligible based on patient's age to complete this topic Hepatitis B Aged Out No longer eligi ble based on patient's age to complete this topic MENINGOCOCCAL (MENACTRA/MENVEO) Aged Out No longer eligible based on patient's age to complete this topic Sigmoidoscopy Discontinued documented as of this encounter Medical Devices Not on filedocumented as of this encounter Visit Diagnoses Diagnosis Gastroesophageal reflux disease without esophagitis Esophageal reflux documented in this encounter Advance Directives Latest Code Status on File Code Status Date Activated Date Inactivated Comments Full Code 07/12/2017 2:44 PM 07/13/2017 7:55 PM This order reflects the patients wishes and were consensually agreed upon. Question Answer Comments Discussion of Advance Directives occurred with: Not Discussed Does the patient have a Living Will? No Does the patient have Health Care Power of Credit Front Office Developer? No Care Teams Braid Cutter Relationship Specialty Start Date End Date Albaro Gabriel DO [address] [place] [address] PCP - General Family Medicine 8/9/17 documented as of this encounter
--- OUTSIDE RECORDS SUMMARY | 2023-04-08 14:23 | External Medical Summary | Summary of Care ---
Author Name Unknown Organization [facility] Address [address] [facility] [place] [address] Phone [phone] Care Team Providers Care Parts Casting Machine Operator Name Role Phone Albaro Gabriel DO Primary Care Provider Reason for Visit * Reason Onset Date Comments Fax 04/01/2023 Encounter Details Date Type Department Care Team (Late st Contact Info) Description 04/01/2023 Telephone Family Practice [facility] [place] [address] [facility] [place] [address] Albaro Gabriel DO [address] [facility] [place] [address] Fax Allergies Active Allergy Reactions Criticality Noted Date Comments Nifedipine Medium 08/31/2013 Migraine headache at first dosing Sulfa Antibiotics 04/16/2002 rash documented as of this encounter (statuses as of 04/01/2023) Medications Medication Sig Dispensed Refills Start Date [...] 1 Tablet before bedtime. 0 11/12/2020 Active [place] Oil Oral Capsule Take by mouth. 0 Active Multivitamin Adults Oral Tablet Take by mouth. 0 Ac tive Metamucil Smooth Texture 28.3 % Oral Powder (Psyllium) Take by mouth . 0 Active Vyepti 100 MG/ML Intravenous Solution (Eptinezumab-jj) Administer 1 mL intravenously once. Every 3 months 0 Active Aspirin 81 MG Oral Tablet Delayed Release Take 2 Tablets by mouth in the morning. 0 Active Levothyroxine Sodium 100 MCG Oral Tablet (Levoxyl)Indicatio ns:Post-surgical hypothyroidism,Pap illary carcinoma of thyroid (HCC) Take 1 tablet by mouth daily x6 days a week, half a tablet on day 7. 90 Tablet 3 03/02/2022 Active Celecoxib 200 MG Oral Capsule (CeleBREX) [...] the morning. 45 Tablet 5 03/19/2023 Active documented as of this encounter (statuses as of 04/01/2023) Active Problems Problem Noted Date Diagnosed Date [...] CA IN SITU LEFT BREAST; ER and NC negative 10/22/2005 PELV PERIT ENDOMETRIOSIS 06/10/2002 COMMON MIGRAINE WITHOUT MENTION OF INTRACTABLE M IGRAINE 02/04/2002 [id number] DISORDER documented as of this encounter (statuses as of 04/01/2023) Resolved Problems Problem Noted Date Diagnosed Date [...] as of this encounter (statuses as of 04/01/2023) Immunizations Name Administration Dates Next Due COVID-19 mRNA, LNP-s, No Pre serve, 2-Dose Series ([employer]) 09/13/2020,08/25/2020 Pneumococcal Conjugate Vacci ne, 20-valent ([id number]) 11/28/2021 Seasonal Influenza, PF, 6 M & [...] encounter Miscellaneous Notes * Telephone Encounter - Lucy Saini OSA - 04/01/2023 9:12 AM EST Faxed to [facility] * Telephone Encounter - Elvie Obrien OSA - 04/01/2023 9:10 AM EST Caller requesting the following information to be faxed: Name/Company of caller: [employer] Information requested to be faxed: PT referral Fax number: [phone] Attention to Name/Company: n/a Any additional information?: n/a documented in this encounter Plan of Treatment Upcoming Encounters Date Type Department Care Team (Late st Contact Info) Description 04/22/2023 4:00 PM EST Office Visit Family Practice [facility] [place] [address] [place] [address] Josefina Scott PA-C [address] [place] [address] 05/17/2023 10:00 AM EST Telemedicine [facility]ology [facility] [address] [facility] [place] [address] Layla Pearson MD 132 [facility] [place] [phone] 07/08/2023 1:20 PM EDT Office Visit Family Practice [facility] [address] [place] [address] Albaro Gabriel, [address] [place] [address] 09/05/2023 10:20 AM EDT Telemedicine Endocrinology, [address] [phone] Sheila Starr MD [address] [place] [phone] 09/18/2023 1:30 PM EDT Office Visit Cardiology, [facility] [address] [facility] [place] [address] Endy Brumfield PA-C 132 [facility] [place] [phone] Scheduled Procedures Name Priority Associated Diagnoses Date/Ti [...] Additional history exists Lipid Panel 05/29/2027 05/28/2022, 08/3 , 08/10/2020, Additional history exists DTaP,Tdap,and Td Vaccines [...] Not on filedocumented as of this encounter Advance Directives Latest Code Status on File Code Status Date Activated Date Inactivated Comments Full Code 07/12/2017 2:44 PM 07/13/2017 7:55 PM This order reflects the patients wishes and were consensually agreed upon. Question Answer Comments Discussion of Advance Directives occurred with: Not Discussed Does the patient have a Living Will? No Does the patient have Health Care Power of Multicut Line Operator? No Care Teams Parts Casting Machine Operator Relationship Specialty Start Date End Date Albaro Gabriel DO [facility] [address] [place], [place] [address] PCP - General Family Medicine 10/31/16 documented as of this encounter
--- OUTSIDE RECORDS SUMMARY | 2023-04-08 14:23 | External Medical Summary ---
Author Name Unknown Address Unknown Organization [id number]:[facility] [place] - [address] [facility] [address] Laboratory Report Ordering Provider Test Date Status OTTO MONTOYARIDSHANITA 04/06/2023 12:50:24 Final Observation Date Value Abnormality Reference (Units ) Status Adenovirus DNA [Presence] in Nasopharynx by SAMINA with non-probe detection 04/06/2023 12:50:24 Negative Negative Final Human coronavirus 229E RNA [Presence] in Nasopharynx by SAMINA with non-probe detection 04/06/2023 12:50:24 Negative Negative Final Human coronavirus HKU1 RNA [Presence] in Nasopharynx by SAMINA with non-probe detection 04/06/2023 12:50:24 Negative Negative Final Human coronavirus NL63 RNA [Presence] in Nasopharynx by SAMINA with non-probe detection 04/06/2023 12:50:24 Negative Negative Final Human coronavirus OC43 RNA [Presence] in Nasopharynx by SAMINA with non-probe detection 04/06/2023 12:50:24 Negative Negative Final SARS-CoV-2 (COVID-19) RNA [Presence] in Nasopharynx by SAMINA with non-probe detection 04/06/2023 12:50:24 Positive Abnormal Negative Final Coronavirus SARS detected by PCR (amplified probe). Test results reported to [facility]. Human metapneumovirus RNA [P resence] in Nasopharynx by SAMINA with non-probe detection 04/06/2023 12:50:24 Negative Negative Final Rhinovirus+Enterovirus RNA [ Presence] in Nasopharynx by SAMINA with non-probe detection 04/06/2023 12:50:24 Negative Negative Final Influenza virus A RNA [Prese nce] in Nasopharynx by SAMINA with non-probe detection 04/06/2023 12:50:24 Negative Negative Final Influenza virus B RNA [Prese nce] in Nasopharynx by SAMINA with non-probe detection 04/06/2023 12:50:24 Negative Negative Final Parainfluenza virus 1 RNA [P resence] in Nasopharynx by SAMINA with non-probe detection 04/06/2023 12:50:24 Negative Negative Final Parainfluenza virus 2 RNA [P resence] in Nasopharynx by SAMINA with non-probe detection 04/06/2023 12:50:24 Negative Negative Final Parainfluenza virus 3 RNA [P resence] in Nasopharynx by SAMINA with non-probe detection 04/06/2023 12:50:24 Negative Negative Final Parainfluenza virus 4 RNA [P resence] in Nasopharynx by SAMINA with non-probe detection 04/06/2023 12:50:24 Negative Negative Final Respiratory syncytial virus RNA [Presence] in Nasopharynx by SAMINA with non-probe detection 04/06/2023 12:50:24 Negative Negative F inal Bordetella pertussis.pertuss is toxin promoter region [Presence] in Nasopharynx by SAMINA with non-probe detection 04/06/2023 12:50:24 Negative Negative Final Chlamydophila pneumoniae DNA [Presence] in Nasopharynx by SAMINA with non-probe detection 04/06/2023 12:50:24 Negative Negative Final Mycoplasma pneumoniae DNA [P resence] in Nasopharynx by SAMINA with non-probe detection 04/06/2023 12:50:24 Negative Negative Final Bordetella parapertussis IS1 001 DNA [Presence] in Nasopharynx by SAMINA with non-probe detection 04/06/2023 12:50:24 Negative Negative F inal
The primers that detect Rhinovirus may cross react with some Enterorviruses. The validation of bronchial specimens, tracheal aspirates, and throats for this assay was developed and performance characteristics determined by [employer]. The validation of alternate specimen types has not been cleared or approved by the U.S. Food and Drug Administration (FDA). It has been determined that such clearance or approval is not necessary. Performing Location [facility] - [facility] [address]. [facility] [address]
--- OUTSIDE RECORDS SUMMARY | 2023-04-08 14:23 | External Medical Summary | Summary of Care ---
Author Name Unknown Organization [facility] Address [address] [place] [address] Phone [phone] Care Team Providers Care Correspondence School Instructor Name Role Phone VitorAlbaro cross Primary Care Provider [phone] Reason for Visit * Reason Comments Generalized Body Aches Encounter Details Date Type Department Care Team (Latest Contact Info) Description 04/06/2023 12:30 PM EST Con[facility]ient [facility] Visit [facility] [address] [place] [address] Sisi Cowart, IDA [address] [place] [address] Fever, unspecified fever cause* Allergies Active Allergy Reactions Criticality Noted Date Comments Nifedipine Medium 08/31/2013 Migraine headache at first dosing Sulfa Antibiotics 04/16/2002 rash documented as of this encounter (statuses as of 04/06/2023) Medications Medication Sig Dispensed Refills Start Date [...] 1 Tablet before bedtime. 0 11/12/2020 Active [place] Oil Oral Capsule Take by mouth. 0 [...] as of this encounter (statuses as of 04/06/2023) Active Problems Problem Noted Date Diagnosed Date [...] CA IN SITU LEFT BREAST; ER and OH negative 10/22/2005 PELV PERIT ENDOMETRIOSIS 06/10/2002 COMMON MIGRAINE WITHOUT MENTION OF INTRACTABLE M IGRAINE 02/04/2002 [id number] DISORDER documented as of this encounter (statuses as of 04/06/2023) Resolved Problems Problem Noted Date Diagnosed Date [...] as of this encounter (statuses as of 04/06/2023) Immunizations Name Administration Dates Next Due COVID-19 mRNA, LNP-s, No Pre serve, 2-Dose Series ([place]) 09/13/2020,08/25/2020 Pneumococcal Conjugate Vacci ne, 20-valent ([id number]) 11/28/2021 Seasonal Influenza, PF, 6 M & [...] 1 20 Smokeless Tobacco: Never Quit: 03/25/1995 Tobacco Cessation:Counseling Given: Not Answered Comments:Quit 1995 after approx 20 years Alcohol Use Standard Drinks/Week Comments [...] on file documented as of this encounter Last Filed Vital Signs Vital Sign Reading Time Taken Comments Blood Pressure 130/80 04/06/2023 12:32 PM EST Pulse 86 04/06/2023 12:32 PM EST Temperature 38.3 C (101 F) 04/06/2023 12 :32 PM EST Respiratory Rate 16 04/06/2023 12:3 2 PM EST Oxygen Saturation 96% 04/06/2023 12: 32 PM EST Inhaled Oxygen Concentration - - Weight 64.8 kg (142 lb 12.8 oz) 024 12:32 PM EST Height - - Body Mass Index 24.5 02/12/2023 8:10 AM EST documented in this encounter Progress Notes * Sisi Cowart CRNP - 04/06/2023 12:39 PM EST [facility] Basic Exam Adelina Eastman is a 62 year old year old female who presents for evaluation of: tested psoitve for COVID this past week, pt developed the symptoms last night and wants tested. She has body aches and fever, no other associated symptooms Associated Symptoms: Admits to: no other complaints Denies: no other complaints REVIEW OF SYSTEMS: See HPI for pertinent positives and negatives. Patient denies addtional complaints. 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 Protein S deficiency (HCC) Thoracic outlet syndrome Past Surgical History: Procedure Laterality Date BREAST BIOPSY Left 01/24/2009 benign- dr. fernandez [facility] BREAST BIOPSY-STEREOTACTIC 09/2005 Left: high grade ductal carcinoma in situ COLONOSCOPY 07/2005 melanosis coli; mild chronic inflammatoin COLONOSCOPY W/ BIOPSY (RECTUM) 12/02/2009 bxs path showed normal tissue COLONOSCOPY, DIAGNOSTIC (RECTUM) 04/27/2022 Severe diverticulosis, benign adenomatous polyp, repeat 5 yrs / COLONOSCOPY FLEXIBLE PROXIMAL DIAGNOSTIC performed by Cara Martinez DO at END[facility] DILATION AND CURETTAGE (D&C) 03/07/2001 Dr. Simeon- benign polyps DOBUTAMINE STRESS ECHO 08/12/2012 negative for ischemic changes- Dr. Jones INFORMATION 2002 Subclavin vein thrombosis & Thoracic Outlet Symdrome LIGATE/CUT OVIDUCT(S) 1981 Tubal Ligation MAMMOGRAM BREAST NEEDLE BIOPSY CORE LEFT Left 09/2005 Microinvasive infiltrating carcinoma MASTECTOMY, PARTIAL Left 10/26/2005 Partial mastectomy PARTIAL MASTECTOMY 10/26/2005 Left PM/SLNB at [facility] - Dr. Fernandez RADIATION THERAPY Left 01/15/2006 5940 cGy REMOVAL OF APPENDIX 08/2005 done by REMOVAL OF PELVIC STRUCTURES 11/2004 Hyst + right oophorectomy- Dr. Guerrero REMOVAL OF THYROID FOR TUMOR N/A 07/12/2017 THYROIDECTOMY WITH LIMITED NECK DISSECTION performed by Manoj Peña MD [place] [facility] REMOVAL OF TONSILS, AGE 12+ age 12 Tonsils Removal,12+ Y/O US GUIDED BREAST BIOPSY RIGHT Right 04/21/2007 x2 Benign, performed at [facility] Social History Tobacco Use Smoking status: Former Packs/day: 1.00 Years: 20.00 Additional pack years: 0.00 Total pack years: 20.00 Types: Cigarettes Smokeless tobacco: Never Tobacco comments: Quit 1995 after approx 20 years Substance Use Topics Alcohol use: Yes Alcohol/week: 0.0 standard drinks of alcohol Comment: rare Vaping/E-Cigarette Use Vaping/E-Cigarette Use Never User Vaping/E-Cigarette Substances Nicotine No Other No Flavoring No THC No Cannabidiol (CBD) No Vaping/E-Cigarette Devices Disposable No Pre-filled or Refillable Cartridge No Refillable Tank No Pre-filled Pod No Patient Active Problem List Diagnosis Code COMMON MIGRAINE WITHOUT MENTION OF INTRACTABLE MIGRAINE G43.009 PELV PERIT ENDOMETRIOSIS N80.30 [id number] DISORDER G60.9 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; ER and OH negative D05.90 Irritable bowel syndrome K58.9 Gastroparesis K31.84 Positive cardiolipin antibodies R76.0 Vascular thoracic outlet syndrome G54.0 Multiple pigmented nevi D22.9 Solar lentigo L81.4 TMJ crepitus M26.69 Abnormal tympanic membrane, right 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 Pure hypercholesterolemia E78.00 Post-surgical hypothyroidism E89.0 History of thyroid cancer Z85.850 Papillary carcinoma of thyroid (HCC) C73 Gastroesophageal reflux disease without esophagitis K21.9 Prediabetes R73.03 Dyslipidemia, goal LDL below 70 E78.5 Hypertension goal BP (blood pressure) < 130/80 I10 Hypothyroidism E03.9 Protein S deficiency (HCC) D68.59 DVT (deep vein thrombosis) in O22.30 Moderate episode of recurrent major depressive disorder (HCC) F33.1 Review of patient's allergies indicates: Allergen Reactions Nifedipine Migraine headache at first dosing Sulfa Antibiotics rash Current Outpatient Medications Medication Sig Dispense Refill fluticasone (FLONASE) 50 MCG/ACT nasal spray USE TWO SPRAYS IN EACH NOSTRIL ONCE DAILY NEEDED FOR ALLERGY (Patient not taking: Reported on 01/17/2023) 1 Bottle 0 naratriptan (AMERGE) 2.5 MG Tablet Take 1 Tablet by mouth as needed. ondansetron ODT (ZOFRAN) 4 MG TBDP 1-2 tabs every 4-6 hours as needed (Patient not taking: Reportedon 11/14/2022) 30 Tab 3 Topiramate 200 MG Oral Tablet (topAMAX) Take 1 Tablet by mouth in the morning and 1 Tablet before bedtime. [place] Oil Oral Capsule Take by mouth. Multivitamin Adults Oral Tablet Take by mouth. Metamucil Smooth Texture 28.3 % Oral Powder (Psyllium) Take by mouth . Vyepti 100 MG/ML Intravenous Solution (Eptinezumab-jj) Administer 1 mL intravenously once. Every 3 months Aspirin 81 MG Oral Tablet Delayed Release Take 2 Tablets by mouth in the morning. Celecoxib 200 MG Oral Capsule (CeleBREX) Take 1 Capsule by mouth in the morning. Vitamin B-2 100 MG Oral Tablet (vitamin B-2) Take 1 Tablet by mouth in the morning. Rosuvastatin Calcium 10 MG Oral Tablet (Crestor) TAKE 1 TABLET BY MOUTH IN THE MORNING 90 Tablet 3 metFORMIN HCl ER 500 MG Oral Tablet Extended Release 24 Hour (Glucophage XR) Take 1 Tablet by mouthin the morning and 1 Tablet before bedtime. With meals (start ediwht only 1 pill / day for first 2 weeks. Titrate up as directed). 180 Tablet 3 Losartan Potassium 25 MG Oral Tablet (Cozaar) Take 1 Tablet by mouth in the morning. 90 Tablet 3 Omeprazole 20 MG Oral Capsule Delayed Release (PriLOSEC) TAKE 1 CAPSULE BY MOUTH ONCE DAILY ONE HOUR PRIOR TO FIRST MEAL OF THE DAY 90 Capsule 3 Carisoprodol 350 MG Oral Tablet (Soma) TAKE 1 TABLET BY MOUTH TWICE DAILY NEEDED FOR MUSCLE SPASM 10 Tablet 0 traMADol HCl 50 MG Oral Tablet (Ultram) Take 1 Tablet by mouth every 8 hours as needed for Pain, Severe or Pain, Moderate. 15 Tablet 0 Citalopram Hydrobromide 20 MG Oral Tablet (CeleXA) Take 1.5 Tablets by mouth in the morning. 45 Tablet 5 Levothyroxine Sodium 100 MCG Oral Tablet (Levoxyl) Take 1 tablet by mouth daily x6 days a week, half a tablet on day 7. 90 Tablet 3 No current facility-administered medications for this visit. Nursing Notes and Vital Signs reviewed. PHYSICAL EXAM: VITALS: BP 130/80 | Pulse 86 | Temp (!) 38.3 C (101 F) (Tympanic) | Resp 16 | Wt 64.8 kg (142 lb 12.8 oz) | LMP 07/25/2004 | SpO2 96% | BMI 24.50 kg/m | BSA 1.71 m GENERAL: alert, healthy, well nourished, well developed, and mild distress HEAD: Normocephalic, No masses, lesions, tenderness or abnormalities EARS: External ears normal, Canals clear, TM's Normal NOSE: no mucosal erythema, no mucosal edema, no purulent discharge OROPHARYNX: no exudate, no erythema, lips, buccal mucosa, and tongue normal, and mucous membranes are moist NECK: supple, no adenopathy HEART: regular rate & rhythm LUNGS: chest symmetric with normal AP diameter, lungs clear to auscultation NEURO: alert & oriented x 3 with fluent speech, gait normal SKIN: skin color, texture, turgor are normal, no rashes or significant lesions Assessment: Assume she has the COVID due to her spouse having tested positive this past week. I did test her. She will go to the ED for any concerns. Fever, unspecified fever cause (Primary) - RESPIRATORY PATHOGEN PANEL, PCR - RETURN TO WORK OR SCHOOL I[place] [facility] [address] [facility] [address] documented in this encounter Nursing Notes * Annette Cooper LPN - 04/06/2023 12:32 PM EST 62 yo female presents with chills, cough, body aches since last night. Took tylenol documented in this encounter Plan of Treatment Upcoming Encounters Date Type Department Care Team (Late st Contact Info) Description 04/22/2023 4:00 PM EST Office Visit Family Practice [facility] [address] [place] [address] Josefina Scott PA-C [address] [place] [address] 05/17/2023 10:00 AM EST Telemedicine Otolaryngology [facility] [address] [place] [address] Layla Pearson MD [address] [facility] [place] [id number] 07/08/2023 1:20 PM EDT Office Visit Family Practice [facility] [address] [place] [address] Albaro Gabriel DO [address] [facility] [place] [address] 09/05/2023 10:20 AM EDT Telemedicine [facility], [place] [address] [facility] [id number] Sheila Starr MD [address] [facility] [place] [address] 09/18/2023 1:30 PM EDT Office Visit Cardiology, [facility] [address] [place] [address] Endy Brumfield PA-C [address] [facility] [place] [address] Pending Results Name Type Priority Associated Diagnoses Date /Time RESPIRATORY PATHOGEN PANEL, PCR Lab STAT Fever, unspecified fever cause 04/06/2023 12:50 PM EST Scheduled Procedures Name Priority Associated Diagnoses Date/Ti [...] 12/19/2021, Additional history exists GFR 02/02/2024 02/01/2023, 0308/2022, 05/10/2021, Additional history exists COLONOSCOPY-EVERY 5 YRS [...] as of this encounter Visit Diagnoses Diagnosis Fever, unspecified fever cause- Primary documented in this encounter Advance Directives Latest [...] the patient have Health Care Power of Director Consumer Affairs? No Care Teams Correspondence School Instructor Relationship Specialty Start Date End Date Albaro Gabriel DO [address] [place] [address] PCP - General Family Medicine 10/31/16 documented as of this encounter"
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
--- OUTSIDE RECORDS SUMMARY | 2023-04-08 14:24 | External Medical Summary | Continuity of Care Document ---
Author Name Unknown Organization [facility] [address] Address [address] [place], [place] [id number] Care Team Providers Care Director Of Athletics Name Role Phone VitorAlbaro cross Marce Primary Care Physician [phone] [facility] [id number] Date(s): 03/22/23 - 03/22/23 [facility] [address] [address] [phone] Encounter Diagnosis Subclavian vein stenosis(Discharge Diagnosis) - 03/22/23 Discharge Disposition: Home or Self Care Attending Physician: MD Cortés John F Referring Physician: MD Cortés John F Allergies, Adverse Reactions, Alerts Substance Reaction Severity Status sulfa drugs rash Mild Active Medications citalopram 20 mg oral tablet 20 mg, 1 tab, PO, Daily, 0, 0, 04/22/07 12:05:29, current medication from another provider, [id number], Constant Indicator Start Date: 04/22/07 Status: Ordered citalopram 40 mg oral tablet Start: 03/27/21 10:36:00 EST, 90 each, TAKE 1 TABLET BY MOUTH ONCE DAILY Start Date: 03/27/21 Status: Ordered fluticasone 50 mcg/inh nasal spray Start: 05/01/19 11:39:00 EST, 1 spray, each nostril, Daily Start Date: 05/01/19 Status: Ordered hydroCHLOROthiazide 12.5 mg oral tablet Start: 01/13/21 13:02:00 EDT, 1 tab, PO, Daily Start Date: 01/13/21 Status: Ordered levothyroxine 100 mcg (0.1 mg) oral tablet Start: 03/27/21 10:36:00 EST, 90 each, TAKE 1 TABLET BY MOUTH ONCE DAILY AT LEAST 30 MINUTES PRIOR TO BREAKFAST OR OTHER MEDS Start Date: 03/27/21 Status: Ordered levothyroxine 88 mcg (0.088 mg) oral tablet Start: 05/01/19 11:39:00 EST, 1 tab, PO, Daily Start Date: 05/01/19 Status: Ordered multivitamin Start: 01/23/19 13:30:00 EDT, 1 tab, PO, Daily Start Date: 01/23/19 Status: Ordered naratriptan 2.5 mg oral tablet Start: 10/01/16 10:23:00, 1 tab, PO, ONCE, PRN: as needed for migraine headache Start Date: 10/01/16 Status: Ordered omeprazole 20 mg oral delayed release capsule Start: 03/27/21 10:36:00 EST, 90 each, TAKE 1 CAPSULE BY MOUTH ONCE DAILY 1 HOUR BEFORE THE FIRST MEAL OF THE DAY Start Date: 03/27/21 Status: Ordered pravastatin 20 mg oral tablet Start: 10/01/16 10:20:00, 1 tab, PO, qhs Start Date: 10/01/16 Status: Ordered [place] Oil 1000 mg oral capsule Start: 02/10/21 16:19:00 EST Start Date: 02/10/21 Status: Ordered Soma 350 mg oral tablet 350 mg, 1 tab, PO, bid, 0, 0, 04/22/07 12:05:51, current medication from another provider, [id number], Constant Indicator Start Date: 04/22/07 Status: Ordered topiramate Start: 10/01/16 10:23:00, 100 mg =, bid Start Date: 10/01/16 Status: Ordered topiramate 200 mg oral tablet Start: 03/27/21 10:37:00 EST, 180 each, TAKE 1 TABLET BY MOUTH TWICE DAILY Start Date: 03/27/21 Status: Ordered traMADol 50 mg oral tablet Start: 05/01/19 11:41:00 EST, 1 tab, PO, q4h, PRN: as needed for pain Start Date: 05/01/19 Status: Ordered Tylenol 500 mg oral tablet Start: 02/13/21 13:52:00 EST, 2 tab, PO, q6h, PRN: fever/mild pain (1-3) Start Date: 02/13/21 Status: Ordered unknown medication Start: 07/31/16 15:47:00, See Instructions Start Date: 07/31/16 Status: Ordered Zofran 4 mg oral tablet Start: 05/01/19 11:40:00 EST, 1 tab, PO, ONCE, PRN: as needed for nausea/vomiting Start Date: 05/01/19 Status: Ordered Mental Status 03/22/23 Barriers to Learning one year None evide nt Mandatory Health Literacy Documentation Yes Health Literacy Communication Barriers N ever Primary Language Central African Problem List Condition Confirmation Course Effective Dates Status Health St atus Informant Gigi h disease Confirmed Active Thoracic outlet 1 Confirmed Active 1rib resection Diagnosis Diagnosis Type Effective Dates Health Status Clinical Service Informant Subclavian vein stenosis Discharge Diagnosis 03/22/23 Procedures Procedure Date Related Diagnosis Body Site Status Shoulder repair 2018 Completed Thyroid gland excision 2018 Co mpleted Social History Social History Type Response Smoking Status Never smoked cigaret anne Sex Female Patient Care team information Care Team Personnel Name: DO Gabriel Shane D Position: Referring DIRECT Member Role: Primary Care Provider Address: Address: [address] [place] [address] Care Team Related Persons Name: DELONTE MCDOWELL Address: home No Address Provided Name: DELONTE MCDOWELL Address: home [address] [place], [place] [id number] Name: MANA CONTRERAS Address: home [address] [place], [place] [id number] Name: JAMAR GLASER Address: home [address] [place], [place] [id number]
--- NOTE | 2023-04-08 14:34 | Electrocardiogram Report ---
Test Reason : Blood Pressure : / mmHG Vent. Rate : 071 BPM Atrial Rate : 071 BPM P-R Int : 140 ms QRS Dur : 084 ms QT Int : 416 ms P-R-T Axes : 060 019 050 degrees QTc Int : 452 ms Normal sinus rhythm Normal ECG When compared with ECG of 02-DEC-2020 21:24, No significant change was found Confirmed by Donovan Garcia ([id number]) on 04/08/2023 2:34:25 PM Referred By: REFERRED SELF Confirmed By:Donovan Garcia
--- NOTE | 2023-04-08 15:08 | History & Physical Report ---
Date of Service April 08, 2023 Assessment & Plan (1) COVID-19: (2) Heart palpitations: (3) Hypokalemia: (4) Protein S deficiency: (5) HTN (hypertension): (6) Pre-diabetes: Plan This is a 62-year-old female who has a significant past medical history of papillary thyroid carcinoma, history of left breast cancer, history of thoracic outlet syndrome, HTN, HLD, prediabetes, hypothyroidism, protein S deficiency, antiphospholipid antibody syndrome, history of DVT, depression, IBS, GERD, Qnngonx-Bkloc-Yydyo disease who presents to ED secondary to heart palpitations prior to arrival. Atypical Chest Pain Elevated troponin Heart palpitations admit to Tele sx likely in setting of viral illness pt with RF including HTN, HLD, +FH son fatal [place] at 45 she had Cardiac calcium CT 12/2022 with score of 0 last cardiac work up 12/2021 - echo at that time preserve EF- trivial anterior pericardial effusion noted at that time --chest CTA: negative PE, trace pleural/pericardial effusion trop elevated at 28.6, will cycle repeat ECG in a.m., obtain echo obtain TSH replace electrolytes COVID -19 mild sx, no oxygen requirement does not require and covid specific therapies supportive care, prn tylenol, anti tussive Hypokalemia replace, repeat in a.m. HTN continue losartan chronic, stable HLD continue statin chronic, stable Pre DM a1c 5.7 hold metformin accuchecks, bsg 66 in ED, will hold on insulin coverage for now and monitor bsg trend obtain a1c in a.m. Chronic medical conditions: Hx of thoracic outlet syn Hx of papillary thyroid ca s/p resection hx of L breast ca s/p surg Protein S def/Hx of DVT Antiphospholipid antibody syn DVT ppx: SQ Lovenox FULL CODE PCP: Dr. Gabriel Dispo: Tele, cardiac work up, likely d/c in am. Pt was seen and examined in collaboration with Dr. Xie, please see addendum A total of 84 minutes was spent coordinating, documenting, and providing care for this patient excluding time spent in the performance of separately billed services. This included personally viewing all current laboratories and imaging studies, medication reconciliation, outpatient chart review, and discussion with specialists. History of Present Illness Chief Complaint: Heart palpitations prior to arrival. Primary Care Provider: Albaro Gabriel DO This is a 62-year-old female who has a significant past medical history of papillary thyroid carcinoma, history of left breast cancer, history of thoracic outlet syndrome, HTN, HLD, prediabetes, hypothyroidism, protein S deficiency, antiphospholipid antibody syndrome, history of DVT, depression, IBS, GERD, Ihksjlo-Nydwa-Absqz disease who presents to ED secondary to heart palpitations prior to arrival. Patient was recently diagnosed with COVID-19 on 04/06/2023. Symptoms started Saturday evening with fever, sinus congestion, sore throat, runny nose, dry cough, ill feeling, myalgias, fatigue and poor appetite. On Saturday she did notice that her substernal chest felt heavy but this resolved on its own. She has complained of some intermittent shortness of breath with very light activity. Today she was in her house whenever she felt her heart was ra cing. This required her to go lay down. After several minutes her symptoms resolved on its own. She has never had a thing like this in the past. She called her PCP who due to heart palpitations referred her to ED for further evaluation. She states she does have a strong family history of CAD. Her son at 45 with a massive [place]. There is also a strong family history on her side as well. She denies any lightheadedness, dizziness, wet cough, hemoptysis, nausea, vomiting, abdominal pain, dysuria, increased urgency or frequency with urination, melena, hematochezia, diarrhea or constipation. She is been taking Tylenol for her COVID-like symptoms. Today she also complains of a dull headache. She does have history of migraines but states this does not feel similar. Her outpatient epic chart was reviewed. She did have a CT cardiac calcium score done in January 18, 2023 which was 0. She also states when her son back in 2020 she had full cardiac workup which was unremarkable. Allergies Allergy/AdvReac Type Severity Reaction Status Date / Time Sulfa (Sulfonamide Allergy Intermediate itchy Verified 04/08/23 12:37 Antibiotics) rash dexamethasone AdvReac Headache Verified 04/08/23 12:37 NIFEdipine Allergy Unknown Unknown Uncoded 04/08/23 12:37 Home Medications Medication Instructions Recorded Confirmed Type salmon oil-omega-3 fatty acids 1 tab PO QAM ##0 08/27/13 04/08/23 History 1,000 mg-200 mg capsule ([place] Oil-) tramadol 50 mg tablet 50 mg PO Q6H PRN Pain 11/29/17 04/08/23 History multivitamin with minerals 1 tab PO DAILY 11/13/18 04/08/23 History (Multiple Vitamin-Minerals tablet) carisoprodol 350 mg tablet 350 mg PO BID PRN Muscle Spasm 12/03/20 04/08/23 History levothyroxine 100 mcg tablet 100 mcg PO MOTUWETHFRSA@0600 12/03/20 04/08/23 History aspirin 81 mg capsule 324 mg PO DAILY 04/26/22 04/08/23 History rosuvastatin 10 mg tablet 10 mg PO PM 04/26/22 04/08/23 History topiramate 200 mg tablet 200 mg PO BID #180 tabs 07/19/22 04/08/23 Rx eptinezumab-jjmr 100 mg/mL 300 mg (3 mL) IV .COMPLEX #3 mL 01/31/23 04/08/23 Rx intravenous solution (Vyepti) losartan 25 mg tablet 25 mg PO DAILY 02/20/23 04/08/23 History naratriptan 2.5 mg tablet 2.5 mg PO DIRECTED PRN Migraine 02/20/23 04/08/23 Rx Headache #9 tabs ondansetron 4 mg disintegrating 4 mg PO DAILY PRN nausea and 02/20/23 04/08/23 Rx tablet vomiting #30 tabs citalopram 20 mg tablet 30 mg PO DAILY 04/08/23 04/08/23 History levothyroxine 100 mcg tablet 50 mcg PO DE GUZMAN@0600 04/08/23 04/08/23 History metformin 500 mg tablet,extended 500 mg PO BID 04/08/23 04/08/23 History release 24 hr Past Med/Surg History Medical History (Updated 04/08/23 @ 15:08 by Viktoria Lucas PA-C) HTN (hypertension) Atypical chest pain Thoracic back pain Cervicogenic headache Radicular pain of thoracic region Thoracic facet syndrome Thoracic outlet syndrome Antiphospholipid syndrome History of anesthesia reaction DIFFICULTY WAKING UP Hypothyroidism Breast cancer 2004-L HAD RADIATION, NO CHEMO Protein S deficiency Thyroid cancer Anxiety Migraine Pufhqig-Grpdk-Dohdw disease Deep vein thrombosis 2002-[facility]BLCLAV[facility] VEIN Hyperlipidemia Surgical History History of resection of rib Partial right first rib 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 [place] Family History (Updated 04/08/23 @ 15:02 by Viktoria Lucas PA-C) Mother Family history of diabetes mellitus Son , 45 massive mI Coronary heart disease Sister Coronary heart disease Social History Smoking Status: Never smoker Second Hand Exposure: No; Do You Dip or Chew Tobacco: No; Hx Alcohol Use: Yes Alcohol type: wine Hx Substance Use: No Preferred Language: [place] Communication Ability: Effective Visual Impairment: No Limitations Hearing Ability: Normal Wax Pumper Required: No Beliefs That Will Affect Care: None marital status: Current Living Situation: Spouse current occupational status: employed current occupation: book-keeping Feels Safe at Home: Yes Assistive Devices: Contacts and Glasses Review of Systems Review of Systems: All systems reviewed & are unremarkable except as noted in HPI & below Physical Exam Physical Exam: Constitutional: WD/WN, vitals as above, NAD, sitting up in bed, pleasant, conversing easily Head: Normocephalic, Atraumatic Eyes: PERRL, conjunctivae normal, anicteric sclerae ENMT: external ear and nose normal, oropharynx normal Neck: trachea midline, no thyromegaly normal visual inspection Respiratory: normal respiratory effort, lungs clear to auscultation, no wheeze, rales, rhonchi. Normal insp/exp effort, no accessory muscle use Cardiovascular: RRR, no murmur, no edema Vessels: no JVD or carotid bruit Chest: normal inspection of chest Abdomen: normal bowel sounds, soft, nontender, no hepatosplenomegaly Musculoskeletal: no cyanosis or clubbing, extremities motor strength 5/5 Skin: no rashes, warm and dry normal turgor Neurologic: PERRL, EOMI, accommodation nl, no face palsy, no dysarthria CN's II-XI intact bilaterally and moves all extremities Psychiatric: A+Ox3, euthymic affect Lymphatic: no cervical or axillary lymphadenopathy : deferred Results & Data Results & Data Vital Signs (Past 12 Hours) Vital Signs Temp Pulse Pulse Resp BP BP Pulse Ox 04/08/23 13:52 91 H 18 170/87 H 97 04/08/23 12:51 77 04/08/23 12:38 69 17 95 04/08/23 12:38 69 17 163/92 H 95 04/08/23 10:43 36.9 C 91 H 20 121/83 96 O2 Del Method 04/08/23 13:52 Room Air 04/08/23 12:51 04/08/23 12:38 Room Air 04/08/23 12:38 Room Air 04/08/23 10:43 Room Air Laboratory Results I have independently reviewed and interpreted patient's admitting labs including CBC, CMP, PTT, PT/INR, troponin. Diagnostic Findings Chest X-Ray 04/08/23 11:35 XR chest 1V portable CLINICAL HISTORY: Chest pain, nonspecific TECHNIQUE: Single frontal radiograph of the chest was obtained. Comparison: Comparison is made to chest radiograph 06/22/2020 FINDINGS: No lines and tubes are seen. The cardiomediastinal silhouette is normal. The lungs are clear. No evidence of pleural effusion or pneumothorax. IMPRESSION: No acute chest disease. ACT 112: Negative or not required by law. Electronically signed by: Jarret Whitley M.D. 04/08/2023 12:06 PM Chest CTA 04/08/23 13:23 CHEST CTA for PULMONARY ARTERIES CT DOSE: 362.67 mGy.cm HISTORY: Atypical chest pain. Shortness of breath. TECHNIQUE: Multiaxial CT images of the chest were performed following the intravenous administration of contrast to evaluate the pulmonary arteries. 3D/Maximal intensity projection images were also obtained. Sagittal and coronal reformations were also reviewed. A dose lowering technique was utilized adhering to the principles of ALARA. COMPARISON STUDY: Chest CTA 12/02/2020. FINDINGS: Normal caliber thoracic aorta with no evidence for a dissection. Trace pericardial effusion and trace pleural effusions have developed in the interval. The heart is normal in size. No filling defects within the pulmonary arteries to suggest a pulmonary embolus. Limited views the upper abdomen demonstrate a normal liver, spleen, and adrenal glands. Prior thyroidectomy. Normal esophagus. No mediastinal or hilar lymphadenopathy. No acute fractures. No pneumothorax. The central airways are patent. Mild dependent changes seen within the lung bases. Otherwise, no focal lung consolidations to suggest pneumonia. No evidence for pulmonary edema. IMPRESSION: 1. No evidence for a pulmonary embolus. 2. Trace pleural and pericardial effusions. 3. No focal lung consolidations to suggest a pneumonia. ACT 112: Negative or not required by law. Electronically signed by: Chicho Quispe M.D. 04/08/2023 2:06 PM Medications Administered Medication List Discontinued Medications Acetaminophen (Acetaminophen 500 Mg Tab) 1,000 mg PO NOW STA Stop: 04/08/23 12:19 Last Admin: 04/08/23 12:32 Dose: 1,000 mg Documented By: [facility] Albuterol (Albut/Ipratrop 3mg/0.5mg Neb 3 Ml Vial) 3 ml NEB NOW STA; Protocol Stop: 04/08/23 11:36 Last Admin: 04/08/23 12:31 Dose: 3 ml Documented By: [facility] Sodium Chloride (Nss) 1,000 mls @ 999 mls/hr IV .Q1H1M STA Stop: 04/08/23 12:35 Last Infusion: 04/08/23 14:59 Dose: Infused Documented By: Admin: 04/08/23 12:30 Dose: 999 mls/hr Documented By: [facility] Sodium Chloride (Nss) 1,000 mls @ 999 mls/hr IV .Q1H1M ONE Stop: 04/08/23 13:18 Last Admin: 04/08/23 14:59 Dose: Not Given Documented By: [facility] Ioversol (Optiray 320 125ml) 118 ml IV ONCE ONE Stop: 04/08/23 13:45 Last Admin: 04/08/23 13:44 Dose: 118 ml Documented By: [facility] Ketorolac Tromethamine (Ketorolac Tromethamine 15 Mg/Ml Vial) 10 mg IV NOW ONE Stop: 04/08/23 12:19 Last Admin: 04/08/23 12:32 Dose: 10 mg Documented By: DANIEL Ondansetron HCl (Ondansetron Inj 2 Mg/Ml 2 Ml Vial) 4 mg IV NOW STA Stop: 04/08/23 12:19 Last Admin: 04/08/23 12:31 Dose: 4 mg Documented By: Admin: 04/08/23 12:31 Dose: 4 mg Documented By: DANIEL Potassium Chloride (Potassium Chloride Crtab 20 Meq Tabcr) 40 meq PO NOW STA Stop: 04/08/23 14:05 Last Admin: 04/08/23 14:58 Dose: 40 meq Documented By: DANIEL ECG Additional Comments: I have independently reviewed and interpreted patient's admitting EKG which revealed: 71 NSR, no st or t wave changes COVID-19 Results Results COVID-19 Adm Lab Results: RBC 5.05 M/uL (4.20-5.40) 04/08/23 WBC 5.21 K/ul (4.8-10.8) 04/08/23 Hgb 15.5 g/dl (12.0-16.0) 04/08/23 Hct 45.6 % (37.0-47.0) 04/08/23 Plt Count 153 K/uL (130-400) 04/08/23 Neutrophils (%) (Auto) 66.4 % 04/08/23 Lymphocytes (%) (Auto) 23.0 % 04/08/23 Monocytes # (Auto) 0.53 K/uL (0.11-0.59) 04/08/23 Eosinophils # (Auto) 0.00 K/uL (0.00-0.50) 04/08/23 Immature Granulocyte % (Auto) 0.2 % 04/08/23 Neutrophils # (Auto) 3.46 K/uL (1.40-6.50) 04/08/23 Lymphocytes # (Auto) 1.20 K/uL (1.20-3.40) 04/08/23 Monocytes # (Auto) 0.53 K/uL (0.11-0.59) 04/08/23 Eosinophils # (Auto) 0.00 K/uL (0.00-0.50) 04/08/23 Basophils # (Auto) 0.01 K/uL (0.00-0.20) 04/08/23 Immature Granulocyte # (Auto) 0.01 K/uL (0.01-0.20) 4 Na 140 mmol/L (136-145) 04/08/23 K 3.2 mmol/L (3.5-5.1) L 04/08/23 Cl 103 mmol/L (98-107) 04/08/23 CO2 22 mmol/L (21-32) 04/08/23 Anion Gap 15 (3-11) H 04/08/23 BUN 13 mg/dl (6-23) 04/08/23 Creatinine 0.85 mg/dl (0.6-1.2) 04/08/23 BUN/Creatinine Ratio 15.3 (10-20) 04/08/23 Glucose Level 66 mg/dl (70-99(Fasting)) L 04/08/23 Ca 8.7 mg/dl (8.6-10.3) 04/08/23 Total Bilirubin 0.3 mg/dl (0.2-1.0) 04/08/23 AST/SGOT 36 U/L (13-39) 04/08/23 ALT/SGPT 31 U/L (7-52) 04/08/23 Alkaline Phosphatase 38 U/L (34-104) 04/08/23 Total Protein 7.2 gm/dl (6.0-8.3) 04/08/23 Albumin 4.4 gm/dl (3.4-5.0) 04/08/23 Globulin 2.8 gm/dl (2.5-4.0) 04/08/23 Albumin/Globulin Ratio 1.6 (0.9-2) 04/08/23 PTT 30 Seconds (21-31) 04/08/23 INR 1.0 (0.9-1.1) 04/08/23 Chest X-Ray 04/08/23 Code Status & VTE Plan Code Status FULL CODE VTE Prophylaxis Plan VTE Prophylaxis will be ordered: Yes Supervising Physician Co-Signing Physician Notes seen and examined at bedside Patient has history of recent COVID, asymptomatic at this time. Not a candidate for Paxlovid. Primary concern is for palpitations and atypical chest pain in the setting of significant family history Will observe get echocardiogram trend troponins. Possible discharge in a.m. if trops are flat
[2023-04-08 17:17] LABS: Troponin I High Sensitivity 32.7 pg/ml (0-14)
[2023-04-08 17:24] LABS: Thyroid Stimulating Hormone 0.524 uIu/ml (0.300-4.500)
[2023-04-08] MEDS ORDERED: traMADol HCL 50 MG TABLET PO PRN (17:58)
[2023-04-08] MEDS ORDERED: GLUCOSE 40% GEL 15 GM TUBE PO PRN (17:58)
[2023-04-08] MEDS ORDERED: DEXTROMETHORPHAN POLYMR COMPLX 60 MG/10 ML UDP PO PRN (17:58)
[2023-04-08] MEDS ORDERED: CARISOPRODOL 350 MG TABLET PO PRN (17:58)
[2023-04-08] MEDS ORDERED: MAGNESIUM HYDROXIDE SUSP 30 ML UDC PO PRN (17:58)
[2023-04-08] MEDS ORDERED: GLUCAGON FOR INJ 1 MG VIAL SQ PRN (17:58)
[2023-04-08] MEDS ORDERED: DEXTROSE 50% 50 ML SYRINGE IV PRN (17:58)
[2023-04-08] MEDS ORDERED: CARBOHYDRATES FOR HYPOGLYCEMIA PO PRN (17:58)
[2023-04-08] MEDS ORDERED: ONDANSETRON INJ 2 MG/ML 2 ML VIAL IV PRN (17:58)
[2023-04-08] MEDS ORDERED: ALUMINUM/MAGNESIUM SUSP 30 ML UDC PO PRN (17:58)
[2023-04-08] MEDS ORDERED: GLUCOSE 10 TAB/TUBE PO PRN (17:58)
[2023-04-08] MEDS ORDERED: POLYETHYLENE (MIRALAX) 17 GM PACK PO PRN (17:58)
[2023-04-08] MEDS: ACETAMINOPHEN 325 MG TAB PO PRN (18:32)
[2023-04-08] MEDS: TOPIRAMATE 100 MG TAB PO SCH (20:50)
[2023-04-08] MEDS: ENOXAPARIN INJ 40 MG/0.4 ML SYR SQ SCH (20:51)
[2023-04-08] MEDS: ROSUVASTATIN CALCIUM 10 MG TAB PO SCH (20:51)
[2023-04-09] MEDS: LEVOTHYROXINE SODIUM 100 MCG TABLET PO SCH (06:16)
[2023-04-09 08:08] LABS: Hematocrit (blood only) 43.1 % (37.0-47.0); Mean Corpuscular Hemoglobin 29.5 pg (25.0-34.0); Mean Corpuscular Hgb Conc 32.5 g/dL (32.0-36.0); Mean Corpuscular Volume 90.9 fL (80.0-100.0); Mean Platelet Volume 10.7 fL (9.4-12.4); Platelet Count 141 K/uL (130-400); RDW Coefficient of Variation 12.2 % (11.5-14.5); RDW Standard Deviation 40.6 fL (36.4-46.3); Red Blood Count 4.74 M/uL (4.20-5.40); White Blood Count 2.95 K/ul (4.8-10.8)
[2023-04-09] MEDS: TOPIRAMATE 100 MG TAB PO SCH ×2 (08:10→20:48)
[2023-04-09] MEDS: LOSARTAN POTASSIUM 25 MG TAB PO SCH (08:12)
[2023-04-09] MEDS: CITALOPRAM 20 MG TAB PO SCH (08:12)
[2023-04-09] MEDS: CEROVITE ADV FORMULA TAB PO SCH (08:13)
[2023-04-09] MEDS: ASPIRIN 325 MG ECTAB PO SCH (08:14)
[2023-04-09 08:25] LABS: Albumin Globulin Ratio 1.6 (0.9-2); Albumin Level 3.9 gm/dl (3.4-5.0); BUN Creatinine Ratio 16.7 (10-20); Bilirubin,Total 0.3 mg/dl (0.2-1.0); Calcium 7.7 mg/dl (8.6-10.3); Chol HDL Ratio 2.8 (0-5); Creatinine Clr Calc Pharmacy 74.4 ml/min; Est GFR (African American) 108.2 ml/min; Est GFR (Non-African American) 93.4 ml/min; Globulin 2.5 gm/dl (2.5-4.0); Magnesium 1.9 mg/dl (1.7-2.4); Potassium 3.9 mmol/L (3.5-5.1); Total Protein 6.4 gm/dl (6.0-8.3)
[2023-04-09 09:02] LABS: Estimated Average Glucose 120 mg/dl; Hemoglobin A1C 5.8 % (4.5-5.6)
[2023-04-09] MEDS ORDERED: REMDESIVIR 200 MG in SODIUM CHLORIDE 0.9% 210 ML IV ONE (09:15)
[2023-04-09 09:21] LABS: Basophils # (auto) 0.01 K/uL (0.00-0.20); Basophils % (auto) 0.3 %; Eosinophils # (auto) 0.02 K/uL (0.00-0.50); Eosinophils % (auto) 0.7 %; Lymphocytes # (auto) 1.54 K/uL (1.20-3.40); Lymphocytes % (auto) 52.2 %; Monocytes # (auto) 0.34 K/uL (0.11-0.59); Monocytes % (auto) 11.5 %; Neutrophils # (auto) 1.04 K/uL (1.40-6.50); Neutrophils % (auto) 35.3 %; RBC Morphology Unremarkable
[2023-04-09] MEDS: FLUTICASONE PROPIONATE NA SPR 16 GM BTL SCH ×2 (10:21→20:47)
[2023-04-09] MEDS: PANTOprazole 40 MG TAB PO SCH (10:22)
[2023-04-09] MEDS: guaiFENesin 600 MG TABCR PO SCH ×2 (10:22→20:48)
--- NOTE | 2023-04-09 14:52 | Hospitalist Progress Note ---
Date of Service April 09, 2023 Assessment & Plan (1) COVID-19: (2) Heart palpitations: (3) Hypokalemia: (4) Protein S deficiency: (5) HTN (hypertension): (6) Pre-diabetes: Plan This is a 62-year-old female who has a significant past medical history of papillary thyroid carcinoma, history of left breast cancer, history of thoracic outlet syndrome, HTN, HLD, prediabetes, hypothyroidism, protein S deficiency, antiphospholipid antibody syndrome, history of DVT, depression, IBS, GERD, Npxhfda-Xqxpq-Tqocl disease who presents to ED secondary to heart palpitations prior to arrival. Atypical Chest Pain Elevated troponin Heart palpitations Acute coronary syndrome ruled out sx likely in setting of viral illness pt with RF including HTN, HLD, +FH son fatal [place] at 45 she had Cardiac calcium CT 12/2022 with score of 0 last cardiac work up 12/2021 - echo at that time preserve EF- trivial anterior pericardial effusion noted at that time --chest CTA: negative PE, trace pleural/pericardial effusion Troponin remained stable at 20s-30s EKG: No signs of acute ischemia or infarct Echocardiogram: no left ventricular wall motion abnormalities; small loculated pleural effusion; Gr [address] chest angio: Negative for PE Chest pain likely musculoskeletal secondary to coughing No arrhythmia on telemetry monitoring correlating with patient's episode of palpitations last night Continue to monitor Will need Zio patch monitor as an outpatient COVID -19 mild sx, no oxygen requirement Chest x-ray: No pneumonia In light of patient's age group, comorbidities, remdesivir ordered If patient does not complete remdesivir course while admitted, recommend course of Paxlovid upon discharge Hypokalemia Resolved HTN continue losartan chronic, stable HLD continue statin chronic, stable Pre DM a1c 5.7 hold metformin accuchecks, bsg 66 in ED, will hold on insulin coverage for now and monitor bsg trend Chronic medical conditions: Hx of thoracic outlet syn Hx of papillary thyroid ca s/p resection hx of L breast ca s/p surg Protein S def/Hx of DVT Antiphospholipid antibody syn DVT ppx: SQ Lovenox FULL CODE PCP: Dr. Gabriel Dispo: Pending Anticipate discharge home tomorrow Admission and Anticipated Discharge Date Admission Date: April 09, 2023 Subjective Follow-up for chest pain, COVID-19 infection, etc. Seen resting in bed, comfortable, not in distress States she feels improved compared to yesterday Chest pain has resolved, but had an episode of palpitations last night No arrhythmia on telemetry monitoring correlating with episode of palpitations last night Has dry cough, no sputum No fevers or chills, headache, dizziness, abdominal pain, nausea vomiting, diarrhea No other new symptom Review of Systems Review of Systems: all noted and negative except for above Physical Exam Physical Exam: General- oriented x 3, not in distress, speaks in sentences with no effort or accessory muscle use Eyes- anicteric Neck- no JVD Lungs- clear breath sounds bilaterally, no rales/wheezes Heart- normal rate, regular rhythm; no murmurs Abdomen- normal bowel sounds, nondistended, soft, nontender Extremities- no pretibial edema, no calf tenderness Neuro- alert, oriented x 3; no gross focal neurologic deficits Skin- warm & dry Results & Data Results & Data Vital Signs (Past 12 Hours) Vital Signs Temp Pulse Pulse Resp BP BP Pulse Ox 04/09/23 13:07 37.3 C 69 18 150/88 H 95 04/09/23 08:00 36.8 C 75 18 138/81 95 04/09/23 07:30 67 O2 Del Method 04/09/23 13:07 Room Air 04/09/23 08:00 Room Air 04/09/23 07:30 all noted and reviewed including below
[2023-04-09] MEDS: ROSUVASTATIN CALCIUM 10 MG TAB PO SCH (20:49)
[2023-04-09] MEDS: ENOXAPARIN INJ 40 MG/0.4 ML SYR SQ SCH (20:49)
[2023-04-10] MEDS: LEVOTHYROXINE SODIUM 100 MCG TABLET PO SCH (06:08)
[2023-04-10] MEDS: CITALOPRAM 20 MG TAB PO SCH (09:02)
[2023-04-10] MEDS: ASPIRIN 325 MG ECTAB PO SCH (09:02)
[2023-04-10] MEDS: guaiFENesin 600 MG TABCR PO SCH (09:03)
[2023-04-10] MEDS: FLUTICASONE PROPIONATE NA SPR 16 GM BTL SCH (09:03)
[2023-04-10] MEDS: LOSARTAN POTASSIUM 25 MG TAB PO SCH (09:03)
[2023-04-10] MEDS: CEROVITE ADV FORMULA TAB PO SCH (09:04)
[2023-04-10] MEDS: TOPIRAMATE 100 MG TAB PO SCH (09:04)
[2023-04-10] MEDS: PANTOprazole 40 MG TAB PO SCH (09:04)
[2023-04-10] MEDS: ACETAMINOPHEN 325 MG TAB PO PRN (09:12)
[2023-04-10 09:16] LABS: Phosphorus 2.8 mg/dl (2.5-4.9)
[2023-04-10 09:22] LABS: Albumin Globulin Ratio 1.5 (0.9-2); Albumin Level 3.8 gm/dl (3.4-5.0); BUN Creatinine Ratio 17.1 (10-20); Bilirubin,Total 0.3 mg/dl (0.2-1.0); Calcium 8.1 mg/dl (8.6-10.3); Creatinine Clr Calc Pharmacy 70.1 ml/min; Est GFR (African American) 106.1 ml/min; Est GFR (Non-African American) 91.6 ml/min; Globulin 2.6 gm/dl (2.5-4.0); Potassium 3.9 mmol/L (3.5-5.1); Total Protein 6.4 gm/dl (6.0-8.3)
[2023-04-10] MEDS ORDERED: REMDESIVIR 100 MG in SODIUM CHLORIDE 0.9% 230 ML IV SCH (12:00)
--- NOTE | 2023-04-10 15:44 | Discharge Summary ---
Date of Service April 10, 2023 Admission HPI Per Admitting Provider This is a 62-year-old female who has a significant past medical history of papillary thyroid carcinoma, history of left breast cancer, history of thoracic outlet syndrome, HTN, HLD, prediabetes, hypothyroidism, protein S deficiency, antiphospholipid antibody syndrome, history of DVT, depression, IBS, GERD, Vuijqrl-Okove-Dbzsw disease who presents to ED secondary to heart palpitations prior to arrival. Patient was recently diagnosed with COVID-19 on 04/06/2023. Symptoms started Saturday evening with fever, sinus congestion, sore throat, runny nose, dry cough, ill feeling, myalgias, fatigue and poor appetite. On Saturday she did notice that her substernal chest felt heavy but this resolved on its own. She has complained of some intermittent shortness of breath with very light activity. Today she was in her house whenever she felt her heart was racing. This required her to go lay down. After several minutes her symptoms resolved on its own. She has never had a thing like this in the past. She called her PCP who due to heart palpitations referred her to ED for further evaluation. She states she does have a strong family history of CAD. Her son at 45 with a massive WA. There is also a strong family history on her side as well. She denies any lightheadedness, dizziness, wet cough, hemoptysis, nausea, vomiting, abdominal pain, dysuria, increased urgency or frequency with urination, melena, hematochezia, diarrhea or constipation. She is been taking Tylenol for her COVID-like symptoms. Today she also complains of a dull headache. She does have history of migraines but states this does not feel similar. Her outpatient epic chart was reviewed. She did have a CT cardiac calcium score done in January 18, 2023 which was 0. She also states when her son back in 2020 she had full cardiac workup which was unremarkable. Admission Exam Per Admitting Provider Constitutional: WD/WN, vitals as above, NAD, sitting up in bed, pleasant, conversing easily Head: Normocephalic, Atraumatic Eyes: PERRL, conjunctivae normal, anicteric sclerae ENMT: external ear and nose normal, oropharynx normal Neck: trachea midline, no thyromegaly normal visual inspection Respiratory: normal respiratory effort, lungs clear to auscultation, no wheeze, rales, rhonchi. Normal insp/exp effort, no accessory muscle use Cardiovascular: RRR, no murmur, no edema Vessels: no JVD or carotid bruit Chest: normal inspection of chest Abdomen: normal bowel sounds, soft, nontender, no hepatosplenomegaly Musculoskeletal: no cyanosis or clubbing, extremities motor strength 5/5 Skin: no rashes, warm and dry normal turgor Neurologic: PERRL, EOMI, accommodation nl, no face palsy, no dysarthria CN's II-XI intact bilaterally and moves all extremities Psychiatric: A+Ox3, euthymic affect Lymphatic: no cervical or axillary lymphadenopathy : deferred Principal Diagnosis + COVID 19 heart palpitations, atypical chest pain Discharge Exam General- WD/WN F in NAD, on RA Eyes- anicteric Neck- supple Lungs- clear breath sounds bilaterally, no rales/wheezes Heart- normal rate, regular rhythm; no murmurs Abdomen- normal bowel sounds, nondistended, soft, nontender Extremities- no pretibial edema, moves extremities Neuro- alert, oriented x 3; speech fluent, no facial asymmetry, answers appropriately, moves extremities Skin- warm & dry Discharge Data Allergies Allergy/AdvReac Type Severity Reaction Status Date / Time Sulfa (Sulfonamide Allergy Intermediate itchy Verified 04/08/23 12:37 Antibiotics) rash nifedipine Allergy Unknown Verified 04/08/23 18:17 dexamethasone AdvReac Headache Verified 04/08/23 12:37 Consultations 04/08/23 13:49 ED Decision to Admit Stat Ordered Studies 04/08/23 13:23 CT angio chest PE protocol Stat FINDINGS: Normal caliber thoracic aorta with no evidence for a dissection. Trace pericardial effusion and trace pleural effusions have developed in the interval. The heart is normal in size. No filling defects within the pulmonary arteries to suggest a pulmonary embolus. Limited views the upper abdomen demonstrate a normal liver, spleen, and adrenal glands. Prior thyroidectomy. Normal esophagus. No mediastinal or hilar lymphadenopathy. No acute fractures. No pneumothorax. The central airways are patent. Mild dependent changes seen within the lung bases. Otherwise, no focal lung consolidations to suggest pneumonia. No evidence for pulmonary edema. IMPRESSION: 1. No evidence for a pulmonary embolus. 2. Trace pleural and pericardial effusions. 3. No focal lung consolidations to suggest a pneumonia. Hospital Course (1) COVID-19: (2) Heart palpitations: (3) Hypokalemia: (4) Protein S deficiency: (5) HTN (hypertension): (6) Pre-diabetes: Plan This is a 62-year-old female who has a significant past medical history of papillary thyroid carcinoma, history of left breast cancer, history of thoracic outlet syndrome, HTN, HLD, prediabetes, hypothyroidism, protein S deficiency, antiphospholipid antibody syndrome, history of DVT, depression, IBS, GERD, Igvghny-Nszhx-Xsfuk disease who presents to ED secondary to heart palpitations prior to arrival. Atypical Chest Pain Elevated troponin Heart palpitations Acute coronary syndrome ruled out sx likely in setting of viral illness pt with RF including HTN, HLD, +FH son fatal [place] at 45 she had Cardiac calcium CT 12/2022 with score of 0 last cardiac work up 12/2021 - echo at that time preserve EF- trivial anterior pericardial effusion noted at that time --chest CTA: negative PE, trace pleural/pericardial effusion Troponin remained stable at 20s-30s EKG: No signs of acute ischemia or infarct Echocardiogram: no left ventricular wall motion abnormalities; small loculated pericardial effusion; Gr [address] chest angio: Negative for PE, negative for pna Chest pain likely musculoskeletal secondary to coughing No arrhythmia on telemetry monitoring Continue to monitor Will need Zio patch monitor as an outpatient COVID -19 mild sx, no oxygen requirement Chest x-ray: No pneumonia In light of patient's age group, comorbidities, remdesivir was started If patient does not complete remdesivir course while admitted, recommend course of Paxlovid upon discharge Hypokalemia Resolved HTN continue losartan chronic, stable HLD continue statin chronic, stable Pre DM a1c 5.7 hold metformin accuchecks, bsg 66 in ED, will hold on insulin coverage for now and monitor bsg trend Chronic medical conditions: Hx of thoracic outlet syn Hx of papillary thyroid ca s/p resection hx of L breast ca s/p surg Protein S def/Hx of DVT Antiphospholipid antibody syndrome Total Time Total Time Spent Total Time Spent (In Minutes): 40 Discharge Plan Discharge Items Patient Disposition: Home - Self-Care Reason For Visit: +COVID, CHEST PALPITATIONS Discharge Diagnosis: + COVID 19 heart palpitations, atypical chest pain Activity: Per Instructions section Non-emergency contact: Primary Care Provider and [employer] Call non-emergency contact if: you have any medication questions and your sympt oms worsen Follow-up/Referrals: Albaro Gabriel DO [Primary Care Provider] - Diet: Heart Healthy Addtl Attending Provider Instructions: Follow-up with your primary care provider, and cardiology. You should follow-up with your primary care doctor within 1 week. You were started on medication - pantoprazole - for possible acid reflux. Take guaifenesine for next 7 days and recommend taking paxlovid for covid 19 infection. Pending Studies at Discharge: No Stand-Alone Forms: [facility] [employer], Smoking Cessation Medications and DC Order Prescriptions: New guaifenesin [Mucinex] 600 mg Tablet Extended Release 12hr 600 mg PO Q12 7 Days Qty: 14 0RF Paxlovid 300 mg (150 mg x 2)-100 mg tablets,dose pack See Rx Instructions .ROUTE .COMPLEX Qty: 1 0RF Rx Instructions: take TWO 150 mg tablets of nirmatrelvir with ONE 100 mg tablet of ritonavir twice daily for 5 days pantoprazole 40 mg Tablet,Delayed Release (Dr/Ec) 40 mg PO QAM Qty: 30 0RF Continued [place] Oil-1000 1,000-200 mg Capsule 1 tab PO QAM Qty: 0 topiramate 200 mg tablet 200 mg PO BID Qty: 180 3RF Vyepti 100 mg/mL solution 300 mg IV .COMPLEX Qty: 3 3RF Rx Instructions: 300 mg IV EVERY THREE MONTHS-PREMEDICATE WITH 50MG IV BENADRYL rosuvastatin 10 mg tablet 10 mg PO PM aspirin 81 mg capsule 324 mg PO DAILY losartan 25 mg tablet 25 mg PO DAILY naratriptan 2.5 mg tablet 2.5 mg PO DIRECTED PRN (Reason: Migraine Headache) Qty: 9 5RF Rx Instructions: 1 tablet at onset migraine, may repeat in 2 hours prn, limit to 2-3 days per week. ondansetron 4 mg tablet,disintegrating 4 mg PO DAILY PRN (Reason: nausea and vomiting) Qty: 30 3RF tramadol 50 mg Tablet 50 mg PO Q6H PRN (Reason: Pain) Multiple Vitamin-Minerals Tablet 1 tab PO DAILY carisoprodol 350 mg tablet 350 mg PO BID PRN (Reason: Muscle Spasm) levothyroxine 100 mcg tablet 100 mcg PO MOTUWETHFRSA@0600 metformin 500 mg tablet extended release 24 hr 500 mg PO BID citalopram 20 mg tablet 30 mg PO DAILY Rx Instructions: take 1.5 tabs daily levothyroxine 100 mcg tablet 50 mcg PO DE GUZMAN@0600 Discharge Orders: Discharge Order (Routine); Ordered 04/10/23 Ordered By: Roshan Tran Admission Data Admit Date/Time: 04/09/23 09:18 Attending Provider: Roshan Tran Admit Provider: Mat Gilbert Primary Care Provider: Albaro Gabriel Other Providers: Eleil Xie; Mat Gilbert
--- NOTE | 2023-04-12 06:44 | Electrocardiogram Report ---
Test Reason : Blood Pressure : / mmHG Vent. Rate : 062 BPM Atrial Rate : 062 BPM P-R Int : 140 ms QRS Dur : 082 ms QT Int : 440 ms P-R-T Axes : 060 021 047 degrees QTc Int : 446 ms Poor data quality, interpretation may be adversely affected Normal sinus rhythm Nonspecific T wave abnormality Abnormal ECG When compared with ECG of 08-APR-2023 11:56, T wave inversion now evident in Anterior leads Confirmed by Donovan Garcia ([id number]) on 04/12/2023 6:44:07 AM Referred By: REFERRED SELF Confirmed By:Donovan Garcia
[2023-04-14] MEDS ORDERED: LEVOTHYROXINE SODIUM 50 MCG TABLET PO SCH (06:00)
== END 2023-04-10 17:13 | disposition home or self-care (01) | DRG 178 ==
LOC: ED 10:37 → 2S 10:37 → SUATTDRO 14:16 → 2S 18:20 → SUATTDRO 04-09 09:18